=== PATIENT | male | born 1970 | race American Indian/Alaskan Native ===

== ENCOUNTER 2021-05-08 16:56 | Emergency (ER) | payer MEDICAID ==
[2021-05-08] MEDS ORDERED: GLUCAGON (HUMAN RECOMBINANT) 1 MG/ML INJ ONE (16:58)
[2021-05-08] MEDS ORDERED: SODIUM CHLORIDE 0.9% 1000 ML 1,000 ML IV ONE (17:20)
[2021-05-08] MEDS ORDERED: DEXTROSE 50% IN WATER (25GM) 50 ML SYRINGE IV ONE (17:20)
--- NOTE | 2021-05-08 17:26 | Emergency Department Report ---
ED Altered Mental Status HPI - General Chief Complaint: Hypoglycemia Stated Complaint: AMS PUI?: No Time Seen by Provider: 05/08/21 17:05 Source: EMS Mode of arrival: Stretcher Limitations: Altered Mental Status, Physical Limitation - History of Present Illness Initial Comments: Patient is a 50-year-old male who presents emergency room with EMS for hypoglycemia. EMS unable to obtain an IV access. EMS found the patient sugar to be 35. Patient is minimally responsive. Patient has a history of diabetes and bilateral lower extremity amputations. MD Complaint: altered mental status, decreased responsiveness -: Sudden Severity: severe Consistency of Symptoms: constant Context: other - Related Data Previous Rx's Medication Instructions Recorded Last Taken Type HumuLIN R 6 units SUB-Q AC #5 pen 05/01/20 Unknown Rx Levemir Flextouch 30 units SUB-Q DAILY #5 pen 05/01/20 Unknown Rx Tamsulosin [Flomax] 0.4 mg PO QDAY #30 capsule 05/01/20 Unknown Rx amLODIPine 5 mg PO QDAY 30 Days #30 tablet 05/01/20 Unknown Rx levoFLOXacin [Levaquin TAB] 750 mg PO Q24H #5 tablet 05/01/20 Unknown Rx Allergies Allergy/AdvReac Type Severity Reaction Status Date / Time No Known Allergies Allergy Verified 04/18/20 10:21 ED Review of Systems ROS: Stated complaint: AMS Other details as noted in HPI Comment: Unobtainable due to pts medical conditions ED Past Medical Hx - Past Medical History Previous Medical History?: Yes Hx Hypertension: Yes Hx Heart Attack/AMI: Yes Hx Congestive Heart Failure: Yes Hx Diabetes: Yes Hx Deep Vein Thrombosis: Yes Hx Pulmonary Embolism: Yes Additional medical history: gangrene - Surgical History Past Surgical History?: Yes Hx Open Heart Surgery: Yes Additional Surgical History: 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, left toe amputations - Family History Family history: no significant - Social History Smoking Status: Current Every Day Smoker Substance Use Type: None - Medications Home Medications: Home Medications Medication Instructions Recorded Confirmed Last Taken Type HumuLIN R 6 units SUB-Q AC #5 pen 05/01/20 Unknown Rx Levemir Flextouch 30 units SUB-Q DAILY #5 pen 05/01/20 Unknown Rx Tamsulosin [Flomax] 0.4 mg PO QDAY #30 capsule 05/01/20 Unknown Rx amLODIPine 5 mg PO QDAY 30 Days #30 tablet 05/01/20 Unknown Rx levoFLOXacin [Levaquin TAB] 750 mg PO Q24H #5 tablet 05/01/20 Unknown Rx ED Physical Exam - General Limitations: Altered Mental Status, Physical Limitation General appearance: in no apparent distress, obtunded - Head Head exam: Present: atraumatic, normocephalic - Eye Eye exam: Present: normal appearance, PERRL Pupils: Present: normal accommodation - ENT ENT exam: Present: mucous membranes dry - Neck Neck exam: Present: normal inspection - Respiratory Respiratory exam: Present: normal lung sounds bilaterally. Absent: respiratory distress, wheezes, rales - Cardiovascular Cardiovascular Exam: Present: regular rate, normal rhythm. Absent: systolic murmur, diastolic murmur, rubs, gallop - GI/Abdominal GI/Abdominal exam: Present: soft, normal bowel sounds - Rectal Rectal exam: Present: deferred - Extremities Exam Extremities exam: Present: normal inspection - Back Exam Back exam: Present: normal inspection - Neurological Exam Neurological exam: Present: altered - Skin Skin exam: Present: warm, dry, intact, normal color. Absent: rash - Assessment Assessment Interval: Baseline - Level of Consciousness 1a. Level of Consciousness: resp stimuli/obtunded - LOC Questions 1b. LOC Questions: answers 1 question correctly - LOC Command 1c. LOC Commands: performs tasks correctly - Best Gaze 2. Best Gaze: normal - Visual 3. Visual: no visual loss - Facial Palsy 4. Facial Palsy: normal symmetrical movement - Motor Arm 5a. Motor Arm Left: some gravity effort 5b. Motor Arm Right: some gravity effort - Motor Leg 6a. Motor Leg Left: some gravity effort 6b. Motor Leg Right: some gravity effort - Limb Ataxia 7. Limb Ataxia: amputation - Sensory 8. Sensory: normal - Best Language 9. Best Language: mute/global aphasia - Dysarthria 10. Dysarthria: mute/anarrthric - Extinction and Inattention 11. Extinction/Inattention: no abnormality - Scoring Total Score: 16 Stroke Severity: Moderate to Severe Stroke ED Course Vital Signs 05/08/21 05/08/21 17:33 20:01 Pulse Rate 104 H 118 H Respiratory 21 20 Rate Blood Pressure 177/114 Blood Pressure 142/89 [Left] O2 Sat by Pulse 89 97 Oximetry - Reevaluation(s) Reevaluation #1: Patient brought in by EMS without an IV. 2 IVs were placed. Personally placed a right EJ. See procedure note. Patient given IV glucose. Patient's current blood sugar is 129. Patient is answering yes/no questions. 05/08/21 17:24 Reevaluation #2: Patient alert oriented x3. Patient answering questions appropriately patient states that he took too much insulin and did not eat enough food for the amount of insulin he injects. Patient denies pain. Patient states he is just tired. Patient denies pain. Patient states she just feels tired. Patient denies chest pain or shortness of breath. Patient denies recent travel. Patient denies recent international travel. Patient denies exposure to the novel coronavirus. Patient denies sick contacts. Patient denies fever and chills. Patient denies cough. Patient denies diarrhea. Patient denies coming in contact with anybody with symptoms of the novel coronavirus. 05/08/21 18:18 Reevaluation #3: I discussed all results and clinical findings with patient. I discussed plan of care with patient. Patient agrees with plan of care. Patient is stable for discharge. Patient will be discharged home. Patient given discharge instructions. Patient voiced understanding of discharge instructions. 05/08/21 22:23 - EJ/Peripheral Line Neck RT Time Out Performed: Yes Indications: nurses unable to establis Skin Cleansed in Sterile Fashion: Yes Size: 20 Dressing Placed: Tegaderm, tape Patient Tolerated Procedure: well, no complications - Lab Data Result diagrams: 05/08/21 17:36 05/08/21 17:36 Lab Results 05/08/21 05/08/21 05/08/21 Range/Units 17:17 17:36 17:36 WBC 6.1 (4.5-11.0) K/mm3 RBC 4.96 (3.65-5.03) M/mm3 Hgb 14.5 (11.8-15.2) gm/dl Hct 45.0 (35.5-45.6) % MCV 91 (84-94) fl MCH 29 (28-32) pg MCHC 32 (32-34) % RDW 16.2 H (13.2-15.2) % Plt Count 303 (140-440) K/mm3 Lymph % (Auto) 13.9 (13.4-35.0) % Wallace % (Auto) 4.3 (0.0-7.3) % Eos % (Auto) 1.0 (0.0-4.3) % Baso % (Auto) 0.9 (0.0-1.8) % Lymph # (Auto) 0.8 L (1.2-5.4) K/mm3 Wallace # (Auto) 0.3 (0.0-0.8) K/mm3 Eos # (Auto) 0.1 (0.0-0.4) K/mm3 Baso # (Auto) 0.1 (0.0-0.1) K/mm3 Seg Neutrophils % 79.9 H (40.0-70.0) % Seg Neutrophils # 4.9 (1.8-7.7) K/mm3 Sodium (137-145) mmol/L Potassium (3.6-5.0) mmol/L Chloride (98-107) mmol/L Carbon Dioxide (22-30) mmol/L Anion Gap mmol/L BUN (9-20) mg/dL Creatinine (0.8-1.3) mg/dL Estimated GFR ml/min BUN/Creatinine Ratio % Glucose (75-100) mg/dL POC Glucose 129 H (70-105) mg/dL Lactic Acid 2.10 H* (0.7-2.0) mmol/L Calcium (8.4-10.2) mg/dL Total Bilirubin (0.1-1.2) mg/dL AST (5-40) units/L ALT (7-56) units/L Alkaline Phosphatase (35-129) units/L Ammonia (25-60) umol/L Total Creatine Kinase (55-170) units/L Troponin T (0.00-0.029) ng/mL Total Protein (6.3-8.2) g/dL Albumin (3.9-5) g/dL Albumin/Globulin Ratio % Urine Color (Yellow) Urine Turbidity (Clear) Urine pH (5.0-7.0) Ur Specific [place] (1.003-1.030) Urine Protein (Negative) mg/dL Urine Glucose (UA) (Negative) mg/dL Urine Ketones (Negative) mg/dL Urine Blood (Negative) Urine Nitrite (Negative) Urine Bilirubin (Negative) Urine Urobilinogen (<2.0) mg/dL Ur Leukocyte Esterase (Negative) Urine WBC (Auto) (0.0-6.0) /HPF Urine RBC (Auto) (0.0-6.0) /HPF U Epithel Cells (Auto) (0-13.0) /HPF Urine Opiates Screen Urine Methadone Screen Ur Barbiturates Screen Ur Phencyclidine Scrn Ur Amphetamines Screen U Benzodiazepines Scrn Urine Cocaine Screen U Marijuana (THC) Screen Drugs of Abuse Note Plasma/Serum Alcohol (0-0.07) % 05/08/21 05/08/21 05/08/21 Range/Units 17:36 17:36 17:36 WBC (4.5-11.0) K/mm3 RBC (3.65-5.03) M/mm3 Hgb (11.8-15.2) gm/dl Hct (35.5-45.6) % MCV (84-94) fl MCH (28-32) pg MCHC (32-34) % RDW (13.2-15.2) % Plt Count (140-440) K/mm3 Lymph % (Auto) (13.4-35.0) % Wallace % (Auto) (0.0-7.3) % Eos % (Auto) (0.0-4.3) % Baso % (Auto) (0.0-1.8) % Lymph # (Auto) (1.2-5.4) K/mm3 Wallace # (Auto) (0.0-0.8) K/mm3 Eos # (Auto) (0.0-0.4) K/mm3 Baso # (Auto) (0.0-0.1) K/mm3 Seg Neutrophils % (40.0-70.0) % Seg Neutrophils # (1.8-7.7) K/mm3 Sodium 141 (137-145) mmol/L Potassium 4.0 (3.6-5.0) mmol/L Chloride 103.0 (98-107) mmol/L Carbon Dioxide 27 (22-30) mmol/L Anion Gap 15 mmol/L BUN 19 (9-20) mg/dL Creatinine 1.1 (0.8-1.3) mg/dL Estimated GFR > 60 ml/min BUN/Creatinine Ratio 17 % Glucose 225 H (75-100) mg/dL POC Glucose (70-105) mg/dL Lactic Acid (0.7-2.0) mmol/L Calcium 9.2 (8.4-10.2) mg/dL Total Bilirubin 0.20 (0.1-1.2) mg/dL AST 36 (5-40) units/L ALT 38 (7-56) units/L Alkaline Phosphatase 172 H (35-129) units/L Ammonia 37.0 (25-60) umol/L Total Creatine Kinase 320 H (55-170) units/L Troponin T < 0.010 (0.00-0.029) ng/mL Total Protein 7.9 (6.3-8.2) g/dL Albumin 3.6 L (3.9-5) g/dL Albumin/Globulin Ratio 0.8 % Urine Color (Yellow) Urine Turbidity (Clear) Urine pH (5.0-7.0) Ur Specific [place] (1.003-1.030) Urine Protein (Negative) mg/dL Urine Glucose (UA) (Negative) mg/dL Urine Ketones (Negative) mg/dL Urine Blood (Negative) Urine Nitrite (Negative) Urine Bilirubin (Negative) Urine Urobilinogen (<2.0) mg/dL Ur Leukocyte Esterase (Negative) Urine WBC (Auto) (0.0-6.0) /HPF Urine RBC (Auto) (0.0-6.0) /HPF U Epithel Cells (Auto) (0-13.0) /HPF Urine Opiates Screen Urine Methadone Screen Ur Barbiturates Screen Ur Phencyclidine Scrn Ur Amphetamines Screen U Benzodiazepines Scrn Urine Cocaine Screen U Marijuana (THC) Screen Drugs of Abuse Note Plasma/Serum Alcohol < 0.01 (0-0.07) % 05/08/21 05/08/21 05/08/21 Range/Units 18:25 18:47 21:01 WBC (4.5-11.0) K/mm3 RBC (3.65-5.03) M/mm3 Hgb (11.8-15.2) gm/dl Hct (35.5-45.6) % MCV (84-94) fl MCH (28-32) pg MCHC (32-34) % RDW (13.2-15.2) % Plt Count (140-440) K/mm3 Lymph % (Auto) (13.4-35.0) % Wallace % (Auto) (0.0-7.3) % Eos % (Auto) (0.0-4.3) % Baso % (Auto) (0.0-1.8) % Lymph # (Auto) (1.2-5.4) K/mm3 Wallace # (Auto) (0.0-0.8) K/mm3 Eos # (Auto) (0.0-0.4) K/mm3 Baso # (Auto) (0.0-0.1) K/mm3 Seg Neutrophils % (40.0-70.0) % Seg Neutrophils # (1.8-7.7) K/mm3 Sodium (137-145) mmol/L Potassium (3.6-5.0) mmol/L Chloride (98-107) mmol/L Carbon Dioxide (22-30) mmol/L Anion Gap mmol/L BUN (9-20) mg/dL Creatinine (0.8-1.3) mg/dL Estimated GFR ml/min BUN/Creatinine Ratio % Glucose (75-100) mg/dL POC Glucose 212 H (70-105) mg/dL Lactic Acid 2.50 H* 2.30 H* (0.7-2.0) mmol/L Calcium (8.4-10.2) mg/dL Total Bilirubin (0.1-1.2) mg/dL AST (5-40) units/L ALT (7-56) units/L Alkaline Phosphatase (35-129) units/L Ammonia (25-60) umol/L Total Creatine Kinase (55-170) units/L Troponin T (0.00-0.029) ng/mL Total Protein (6.3-8.2) g/dL Albumin (3.9-5) g/dL Albumin/Globulin Ratio % Urine Color (Yellow) Urine Turbidity (Clear) Urine pH (5.0-7.0) Ur Specific [place] (1.003-1.030) Urine Protein (Negative) mg/dL Urine Glucose (UA) (Negative) mg/dL Urine Ketones (Negative) mg/dL Urine Blood (Negative) Urine Nitrite (Negative) Urine Bilirubin (Negative) Urine Urobilinogen (<2.0) mg/dL Ur Leukocyte Esterase (Negative) Urine WBC (Auto) (0.0-6.0) /HPF Urine RBC (Auto) (0.0-6.0) /HPF U Epithel Cells (Auto) (0-13.0) /HPF Urine Opiates Screen Urine Methadone Screen Ur Barbiturates Screen Ur Phencyclidine Scrn Ur Amphetamines Screen U Benzodiazepines Scrn Urine Cocaine Screen U Marijuana (THC) Screen Drugs of Abuse Note Plasma/Serum Alcohol (0-0.07) % 05/08/21 05/08/21 Range/Units 21:22 21:22 WBC (4.5-11.0) K/mm3 RBC (3.65-5.03) M/mm3 Hgb (11.8-15.2) gm/dl Hct (35.5-45.6) % MCV (84-94) fl MCH (28-32) pg MCHC (32-34) % RDW (13.2-15.2) % Plt Count (140-440) K/mm3 Lymph % (Auto) (13.4-35.0) % Wallace % (Auto) (0.0-7.3) % Eos % (Auto) (0.0-4.3) % Baso % (Auto) (0.0-1.8) % Lymph # (Auto) (1.2-5.4) K/mm3 Wallace # (Auto) (0.0-0.8) K/mm3 Eos # (Auto) (0.0-0.4) K/mm3 Baso # (Auto) (0.0-0.1) K/mm3 Seg Neutrophils % (40.0-70.0) % Seg Neutrophils # (1.8-7.7) K/mm3 Sodium (137-145) mmol/L Potassium (3.6-5.0) mmol/L Chloride (98-107) mmol/L Carbon Dioxide (22-30) mmol/L Anion Gap mmol/L BUN (9-20) mg/dL Creatinine (0.8-1.3) mg/dL Estimated GFR ml/min BUN/Creatinine Ratio % Glucose (75-100) mg/dL POC Glucose (70-105) mg/dL Lactic Acid (0.7-2.0) mmol/L Calcium (8.4-10.2) mg/dL Total Bilirubin (0.1-1.2) mg/dL AST (5-40) units/L ALT (7-56) units/L Alkaline Phosphatase (35-129) units/L Ammonia (25-60) umol/L Total Creatine Kinase (55-170) units/L Troponin T (0.00-0.029) ng/mL Total Protein (6.3-8.2) g/dL Albumin (3.9-5) g/dL Albumin/Globulin Ratio % Urine Color Straw (Yellow) Urine Turbidity Clear (Clear) Urine pH 6.0 (5.0-7.0) Ur Specific [place] 1.011 (1.003-1.030) Urine Protein 100 mg/dl (Negative) mg/dL Urine Glucose (UA) 150 (Negative) mg/dL Urine Ketones Neg (Negative) mg/dL Urine Blood Sm (Negative) Urine Nitrite Neg (Negative) Urine Bilirubin Neg (Negative) Urine Urobilinogen < 2.0 (<2.0) mg/dL Ur Leukocyte Esterase Neg (Negative) Urine WBC (Auto) < 1.0 (0.0-6.0) /HPF Urine RBC (Auto) 6.0 (0.0-6.0) /HPF U Epithel Cells (Auto) < 1.0 (0-13.0) /HPF Urine Opiates Screen Negative Urine Methadone Screen Negative Ur Barbiturates Screen Negative Ur Phencyclidine Scrn Negative Ur Amphetamines Screen Negative U Benzodiazepines Scrn Negative Urine Cocaine Screen Negative U Marijuana (THC) Screen Positive Drugs of Abuse Note Disclamer Plasma/Serum Alcohol (0-0.07) % - EKG Data -: EKG Interpreted by Me EKG shows normal: sinus rhythm, axis, intervals, QRS complexes, ST-T waves Rate: normal - Radiology Data Radiology results: report reviewed, image reviewed interpreted by me: Chest x-ray: No pneumonia, no pneumothorax, no foreign body, no osseous findings, no acute findings CHEST 1 VIEW INDICATION / CLINICAL INFORMATION: Altered Mental Status. FINDINGS: SUPPORT DEVICES: None. HEART / MEDIASTINUM: No significant abnormality. LUNGS / PLEURA: No significant pulmonary or pleural abnormality. No pneumothorax. ADDITIONAL FINDINGS: No significant additional findings. IMPRESSION: 1. No acute findings. NONENHANCED CT SCAN OF THE HEAD: INDICATION / CLINICAL INFORMATION: 50 years Male; Altered Mental Status. TECHNIQUE: Routine CT head without contrast. All CT scans at this location are performed using CT dose reduction for ALARA by means of automated exposure control. COMPARISON: CT scan from 04/19/2020 FINDINGS: BRAIN / INTRACRANIAL CONTENTS: No acute hemorrhage, mass effect, midline shift, hydrocephalus, or acute, large territorial infarct. No chronic infarct or focal atrophy. Normal brain volume and ventricular/sulcal size for age. Subtle low-attenuation white matter lesions probably due to chronic small vessel disease CRANIOCERVICAL JUNCTION: No significant abnormality. ORBITS: No significant abnormality of visualized orbits. SINUSES / MASTOIDS: No significant abnormality of the visualized paranasal sinuses or mastoid air cells. ADDITIONAL FINDINGS: None. IMPRESSION: No focal mass, hemorrhage, hydrocephalus, or acute, large territorial infarct. CT remains unchanged since 04/19/2020 - Medical Decision Making Patient is a 50-year-old male who presents emergency room for hypoglycemia. Patient brought in by EMS. EMS initially unable to obtain IV access. Patient was given IM glucagon and IV access was obtained upon arrival. I personally placed a right EJ for IV access. Patient's blood sugar improved. Patient's mentation improved almost immediately after blood sugar was recovered. Patient answered all questions appropriate. Patient initially minimally responsive and altered. Patient had altered mental status work-up. Patient had a head CT for his mentation and it was negative for acute finding. Patient had a chest x-ray and it was negative for acute findings. I personally reviewed the chest x-ray. Patient had labs done which were essentially unremarkable except for lactic acidosis. Patient likely acidosis secondary to the long standing hypoglycemia. Patient given fluids while in ER. Patient returned to baseline mentation. Patient's blood sugars was monitored throughout the stay in the ER. Patient does not require any further emergency medical services or inpatient services. Patient is stable for discharge. Patient discharged home. Critical care time documented due to the multiple reassessments, prolonged time at the bedside, interpretation of diagnostics and labs. - Differential Diagnosis Hypoglycemia, unresponsive, altered mental status, dehydration, Critical Care Time: Yes Critical care time in (mins) excluding proc time.: 35 Critical care attestation.: If time is entered above; I have spent that time in minutes in the direct care of this critically ill patient, excluding procedure time. Critical Care Time: 35 minutes ED Disposition Clinical Impression: Hyperglycemia, Lactic acidosis, Dehydration, Hypoglycemia Disposition: DC-01 TO HOME OR SELFCARE Is pt being admited?: No Does the pt Need Aspirin: No Condition: Stable Instructions: Preventing Type 2 Diabetes Mellitus, Rehydration, Adult, Hypoglycemia, [id number] Additional Instructions: Patient to follow-up with primary care in 2 to 3 days. Patient to follow-up with sand tester in 2 to 3 days. Patient to rest. Patient to increase water. Patient to eat regularly. Patient to monitor blood sugar at home. Patient to keep a blood sugar log.. Patient to continue all medications. Patient to return to the ER if condition worsens, changes or new symptoms arise. Referrals: PRIMARY CARE, [Primary Care Provider] - 2-3 Days Time of Disposition: 22:26
--- NOTE | 2021-05-08 17:46 | XRay Report ---
CHEST 1 VIEW INDICATION / CLINICAL INFORMATION: Altered Mental Status. FINDINGS: SUPPORT DEVICES: None. HEART / MEDIASTINUM: No significant abnormality. LUNGS / PLEURA: No significant pulmonary or pleural abnormality. No pneumothorax. ADDITIONAL FINDINGS: No significant additional findings. IMPRESSION: 1. No acute findings. Signer Name: Ron Giordano MD Signed: 05/08/2021 5:42 PM Workstation Name: [id number]
[2021-05-08 18:05] LABS: Basophils # (Auto) 0.1 K/mm3 (0.0-0.1); Basophils % (Auto) 0.9 % (0.0-1.8); Eosinophils # (Auto) 0.1 K/mm3 (0.0-0.4); Hemoglobin 14.5 gm/dl (11.8-15.2); Lymphocytes # (Auto) 0.8 K/mm3 (1.2-5.4); Lymphocytes % (Auto) 13.9 % (13.4-35.0); Mean Corpuscular HGB Conc 32 % (32-34); Mean Corpuscular Volume 91 fl (84-94); Monocytes # (Auto) 0.3 K/mm3 (0.0-0.8); Monocytes % (Auto) 4.3 % (0.0-7.3); Platelet Count 303 K/mm3 (140-440); Red Blood Count 4.96 M/mm3 (3.65-5.03); Red Cell Distribution Width 16.2 % (13.2-15.2)
[2021-05-08 18:30] LABS: Alanine Aminotransferase 38 units/L (7-56); Albumin 3.6 g/dL (3.9-5); BUN/Creatinine Ratio 17; Blood Urea Nitrogen 19 mg/dL (9-20); Calcium 9.2 mg/dL (8.4-10.2); Hemolysis Index 5
--- NOTE | 2021-05-08 18:38 | Cat Scan Report ---
NONENHANCED CT SCAN OF THE HEAD: INDICATION / CLINICAL INFORMATION: 50 years Male; Altered Mental Status. TECHNIQUE: Routine CT head without contrast. All CT scans at this location are performed using CT dos e reduction for ALARA by means of automated exposure control. COMPARISON: CT scan from 04/19/2020 FINDINGS: BRAIN / INTRACRANIAL CONTENTS: No acute hemorrhage, mass effect, midline shift, hydrocephalus, or acu te, large territorial infarct. No chronic infarct or focal atrophy. Normal brain volume and ventricul ar/sulcal size for age. Subtle low-attenuation white matter lesions probably due to chronic small ves kirti disease CRANIOCERVICAL JUNCTION: No significant abnormality. ORBITS: No significant abnormality of visualized orbits. SINUSES / MASTOIDS: No significant abnormality of the visualized paranasal sinuses or mastoid air ebony ls. ADDITIONAL FINDINGS: None. IMPRESSION: No focal mass, hemorrhage, hydrocephalus, or acute, large territorial infarct. CT remains unchanged since 04/19/2020 Signer Name: Troy Hung MD Signed: 05/08/2021 6:34 PM Workstation Name: [id number]
[2021-05-08 20:02] VITALS: BP 142/89
[2021-05-08] MEDS ORDERED: ACETAMINOPHEN 325 MG TAB PO ONE (20:46)
[2021-05-08 21:46] LABS: Bilirubin,Urine NEG (Negative); Blood,Urine SM (Negative); Color,Urine Straw (Yellow); Urobilinogen,Urine < 2.0 mg/dL (<2.0); WBC,Urine < 1.0 /HPF (0.0-6.0)
[2021-05-08 21:47] LABS: Amphetamine Screen,Urine Negative; Benzodiazepines Screen,Urine Negative; Cocaine Screen,Urine Negative; Methadone Screen,Urine Negative; Opiate Screen,Urine Negative
[2021-05-08 22:06] LABS: Cannabinoid Screen,Urine Positive
== END 2021-05-08 23:14 | disposition home or self-care (01) ==
LOC: ED 16:56
DX: E11.65 Type 2 diabetes mellitus with hyperglycemia (principal); E86.0 Dehydration; E87.2 Acidosis; I11.0 Hypertensive heart disease with heart failure; I50.9 Heart failure, unspecified; I25.2 Old myocardial infarction; Z98.890 Other specified postprocedural states; F17.200 Nicotine dependence, unspecified, uncomplicated; Z79.899 Other long term (current) drug therapy
CPT/HCPCS: 36415; 36556; 70450; 71045; 80053; 80307; 81001; 82140; 82550; 82962; 84484; 85025; 96361; 96374; 99285; J1610; J7030; 80320; G0480

== ENCOUNTER 2021-07-24 02:10 | Inpatient (IN) | payer MEDICAID ==
[~2021-07-24 02:10] MED LIST: levoFLOXacin 750 MG TAB PO SCH
--- NOTE | 2021-07-24 02:33 | Emergency Department Report ---
ED N/V/D HPI - General Chief complaint: Nausea/Vomiting/Diarrhea Stated complaint: HYPOTENSION/HYPERGLYCEMIA Time Seen by Provider: 07/24/21 02:23 Source: EMS Mode of arrival: Stretcher Limitations: Physical Limitation - History of Present Illness Initial comments: 50-year-old male, history of diabetes, hypertension, CAD with CABG, presents to ED with nausea and vomiting x3 days. Patient reports associated diffuse abdominal pain. He denies any diarrhea. He denies any fever or chills. Patient reports some mild coughing. Denies any loss of smell or taste. Patient reports he is unvaccinated against COVID-19. EMS was called for transport to the ED. EMS reports Accu-Chek reads HIGH, patient also hypotensive in the field, systolic BP in the 90s. Patient is noncompliant with his insulin. Patient currently on Eliquis. Patient states he does not know why he takes Eliquis. MD complaint: nausea, vomiting -: days(s) (3) Description of Vomiting: food contents, watery Associated Abdominal Pain: Yes Location: diffuse Radiation: none Severity: moderate Quality: cramping Consistency: constant Improves with: none Worsens with: none Associated Symptoms: cough, nausea/vomiting. denies: fever/chills, shortness of breath - Related Data Previous Rx's Medication Instructions Recorded Last Taken Type HumuLIN R 6 units SUB-Q AC #5 pen 05/01/20 Unknown Rx Levemir Flextouch 30 units SUB-Q DAILY #5 pen 05/01/20 Unknown Rx Tamsulosin [Flomax] 0.4 mg PO QDAY #30 capsule 05/01/20 Unknown Rx amLODIPine 5 mg PO QDAY 30 Days #30 tablet 05/01/20 Unknown Rx levoFLOXacin [Levaquin TAB] 750 mg PO Q24H #5 tablet 05/01/20 Unknown Rx Allergies Allergy/AdvReac Type Severity Reaction Status Date / Time No Known Allergies Allergy Verified 04/18/20 10:21 ED Review of Systems ROS: Stated complaint: HYPOTENSION/HYPERGLYCEMIA Other details as noted in HPI Comment: All other systems reviewed and negative Constitutional: denies: chills, fever Respiratory: cough Gastrointestinal: abdominal pain, nausea, vomiting. 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, left toe amputations - Social History Smoking Status: Current Every Day Smoker Substance Use Type: None - Medications Home Medications: Home Medications Medication Instructions Recorded Confirmed Last Taken Type HumuLIN R 6 units SUB-Q AC #5 pen 05/01/20 Unknown Rx Levemir Flextouch 30 units SUB-Q DAILY #5 pen 05/01/20 Unknown Rx Tamsulosin [Flomax] 0.4 mg PO QDAY #30 capsule 05/01/20 Unknown Rx amLODIPine 5 mg PO QDAY 30 Days #30 tablet 05/01/20 Unknown Rx levoFLOXacin [Levaquin TAB] 750 mg PO Q24H #5 tablet 05/01/20 Unknown Rx ED Physical Exam - General Limitations: Physical Limitation General appearance: alert, in no apparent distress - Head Head exam: Present: atraumatic, normocephalic - Eye Eye exam: Present: normal appearance, EOMI - ENT ENT exam: Present: mucous membranes dry - Neck Neck exam: Present: normal inspection - Respiratory Respiratory exam: Present: normal lung sounds bilaterally. Absent: respiratory distress - Cardiovascular Cardiovascular Exam: Present: regular rate, normal rhythm - GI/Abdominal GI/Abdominal exam: Present: soft, tenderness (Epigastric tenderness present). Absent: distended - Extremities Exam Extremities exam: Present: other (Bilateral BKA's present) - Neurological Exam Neurological exam: Present: alert, oriented X3 - Psychiatric Psychiatric exam: Present: normal affect, normal mood - Skin Skin exam: Present: warm, dry, intact, normal color ED Course Vital Signs 07/24/21 07/24/21 07/24/21 02:25 03:31 03:53 Temperature 96.5 F L Pulse Rate 101 H 105 H Respiratory 16 21 Rate Blood Pressure 144/124 108/60 O2 Sat by Pulse 100 Oximetry 07/24/21 07/24/21 04:45 05:15 Temperature Pulse Rate 97 H 106 H Respiratory 21 15 Rate Blood Pressure 108/60 118/78 O2 Sat by Pulse 94 Oximetry ED Medical Decision Making - Lab Data Result diagrams: 07/24/21 02:43 07/24/21 04:01 - EKG Data -: EKG Interpreted by Me EKG shows normal: sinus rhythm, axis, intervals, QRS complexes, ST-T waves Rate: tachycardia (rate 102) - EKG Data Interpretation: LVH - Radiology Data Radiology results: image reviewed - Medical Decision Making 50-year-old male presents to ED in DKA. Glucose is 906 with bicarb of 15 and anion gap of 33. Small serum ketones present. Patient also appears to have some acute renal failure with elevation in BUN and creatinine of 78 and 3.5. Potassium is 7.7. EKG shows no changes related to hyperkalemia. 2 L bolus of IV fluids administered. Repeat BMP shows improvement of potassium to 5.4, and bicarb to 20 prior to initiation of insulin drip. Insulin drip ordered and initiated initiated. Patient has WBC count of 23.3. This is likely secondary to symptoms DKA, dehydration, nausea and vomiting. Patient is afebrile. I have spoken with Dr. Amato, hospitalist for admission. He has ordered Levaquin for the patient. Patient will be admitted for further management. - Differential Diagnosis DKA Critical Care Time: Yes Critical care time in (mins) excluding proc time.: 35 Critical care attestation.: If time is entered above; I have spent that time in minutes in the direct care o f this critically ill patient, excluding procedure time. Critical Care Time: 35 min ED Disposition Clinical Impression: Diabetic ketoacidosis, Acute renal failure Disposition: ADMITTED INPATIENT Is pt being admited?: Yes Condition: Stable Time of Disposition: 03:52
[2021-07-24] MEDS ORDERED: SODIUM CHLORIDE 0.9% 1000 ML IV SOLN IV ONE (02:39)
[2021-07-24] MEDS ORDERED: ONDANSETRON 4 MG/2 ML INJ ONE (03:08)
[2021-07-24 03:09] LABS: Mean Corpuscular HGB Conc 31 % (32-34); Mean Corpuscular Volume 91 fl (84-94); Platelet Count 239 K/mm3 (140-440); Red Blood Count 5.54 M/mm3 (3.65-5.03); Red Cell Distribution Width 15.5 % (13.2-15.2)
[2021-07-24 03:11] LABS: Hematocrit 50.6 % (35.5-45.6); Hemoglobin 15.8 gm/dl (11.8-15.2)
[2021-07-24] MEDS ORDERED: ONDANSETRON 4 MG/2 ML INJ IV ONE (03:23)
[2021-07-24 03:35] LABS: Alanine Aminotransferase 15 units/L (7-56); Albumin 3.2 g/dL (3.9-5); BUN/Creatinine Ratio 22; Blood Urea Nitrogen 78 mg/dL (9-20); Hemolysis Index 307
[2021-07-24 03:38] LABS: Bilirubin,Direct < 0.2 mg/dL (0-0.2)
[2021-07-24] MEDS ORDERED: SODIUM CHLORIDE 0.9% 1000 ML 1,000 ML IV ONE (03:49)
[2021-07-24] MEDS ORDERED: ACETAMINOPHEN 325 MG TAB PO PRN (04:06)
[2021-07-24] MEDS ORDERED: oxyCODONE /ACETAMINOPHEN 5-325MG TAB PO PRN (04:06)
[2021-07-24] MEDS ORDERED: ALBUTEROL 2.5 MG/3 ML NEBU IH PRN (04:06)
[2021-07-24] MEDS ORDERED: ONDANSETRON 4 MG/2 ML INJ IV PRN (04:06)
[2021-07-24] MEDS ORDERED: HYDROmorphone 1 MG/1 ML INJ IV PRN (04:06)
[2021-07-24] MEDS ORDERED: SODIUM CHLORIDE 0.9% 1000 ML 1,000 ML IV SCH (04:15)
--- NOTE | 2021-07-24 04:19 | History and Physical Report ---
History of Present Illness Date of examination: 07/24/21 Date of admission: 07/24/21 Chief complaint: Nausea vomiting diarrhea History of present illness: 50-year-old male with past medical history of diabetes, hypertension, CAD and CABG was brought to the emergency room because of nausea vomiting for the last 3 days. Patient reports associated diffuse abdominal pain. He denies any diarrhea. He denies any fever or chills. Patient reports some mild coughing. Denies any loss of smell or taste. Patient reports he is unvaccinated against COVID-19. EMS was called for transport to the ED. EMS reports Accu-Chek reads HIGH, patient also hypotensive in the field, systolic BP in the 90s. Patient is noncompliant with his insulin. Patient currently on Eliquis. Patient states he does not know why he takes Eliquis. In the emergency room patient is found to have blood glucose of 906, potassium of 7.7 BUN of 78 and creatinine 3.5, sodium 126, anion gap 33. We will going to admit the patient to the ICU we will put the patient on insulin drip. Will consult critical care and nephrology Med rec is done. Advance discharge planning is initiated Past History Past Medical History: CAD, diabetes, hypertension Past Surgical History: CABG Medications and Allergies Allergies Allergy/AdvReac Type Severity Reaction Status Date / Time No Known Allergies Allergy Verified 04/18/20 10:21 Home Medications Medication Instructions Recorded Confirmed Last Taken Type HumuLIN R 6 units SUB-Q AC #5 pen 05/01/20 Unknown Rx Levemir Flextouch 30 units SUB-Q DAILY #5 pen 05/01/20 Unknown Rx Tamsulosin [Flomax] 0.4 mg PO QDAY #30 capsule 05/01/20 Unknown Rx amLODIPine 5 mg PO QDAY 30 Days #30 tablet 05/01/20 Unknown Rx levoFLOXacin [Levaquin TAB] 750 mg PO Q24H #5 tablet 05/01/20 Unknown Rx Active Meds: Active Medications Acetaminophen (Acetaminophen 325 Mg Tab) 650 mg PO Q4H PRN PRN Reason: Pain MILD(1-3)/Fever >100.5/CUELLO Albuterol (Albuterol 2.5 Mg/3 Ml Nebu) 2.5 mg IH Q4HRT PRN PRN Reason: Shortness Of Breath Albuterol/Ipratropium (Ipratropium/Albuterol Sulfate 3 Ml Ampul.Neb) 1 ampul IH Q6HRT [facility] Amlodipine Besylate (Amlodipine 5 Mg Tab) 5 mg PO QDAY [facility] Famotidine (Famotidine 20 Mg/2 Ml Inj) 20 mg IV BID [facility] Heparin Sodium (Porcine) (Heparin 5,000 Unit/1 Ml Vial) 5,000 unit SUB-Q Q12HR [facility] Hydromorphone HCl (Hydromorphone 1 Mg/1 Ml Inj) 0.5 mg IV Q3H PRN PRN Reason: Pain , Severe (7-10) Insulin Human Regular 100 (units/ Sodium Chloride) 100 mls @ 1 mls/hr IV TITR JULIO C; Protocol Sodium Chloride (Nacl 0.9% 1000 Ml) 1,000 mls @ 999 mls/hr IV BOLUS ONE Stop: 07/24/21 04:49 Sodium Chloride (Nacl 0.9% 1000 Ml) 1,000 mls @ 150 mls/hr IV DIRECT JULIO C Levofloxacin (Levofloxacin 750 Mg Tab) 750 mg PO Q24H JULIO C; Protocol Ondansetron HCl (Ondansetron 4 Mg/2 Ml Inj) 4 mg IV Q8H PRN PRN Reason: Nausea And Vomiting Oxycodone/Acetaminophen (Oxycodone /Acetaminophen 5-325mg Tab) 1 tab PO Q6H PRN PRN Reason: Pain, Moderate (4-6) Sodium Chloride (Sodium Chloride 0.9% 10 Ml Flush Syringe) 10 ml IV BID JULIO C Sodium Chloride (Sodium Chloride 0.9% 10 Ml Flush Syringe) 10 ml IV PRN PRN PRN Reason: LINE FLUSH Tamsulosin HCl (Tamsulosin 0.4 Mg Cap) 0.4 mg PO QDAY [facility] Review of Systems All systems: negative Gastrointestinal: nausea, vomiting Exam - Constitutional Vitals: Temp Pulse Resp BP Pulse Ox 96.5 F L 101 H 16 144/124 07/24/21 03:53 07/24/21 02:25 07/24/21 02:25 07/24/21 02:25 General appearance: Present: no acute distress, well-nourished - EENT Eyes: Present: PERRL ENT: hearing intact, clear oral mucosa - Neck Neck: Present: supple, normal ROM - Respiratory Respiratory effort: normal Respiratory: bilateral: CTA - Cardiovascular Heart Sounds: Present: S1 & S2. Absent: rub, click - Extremities Extremities: pulses symmetrical, No edema Peripheral Pulses: within normal limits - Abdominal General gastrointestinal: Present: soft, non-tender, non-distended, normal bowel sounds Male genitourinary: Present: normal - Integumentary Integumentary: Present: clear, warm, dry - Musculoskeletal Musculoskeletal: gait normal, strength equal bilaterally - Psychiatric Psychiatric: appropriate mood/affect, intact judgment & insight - Neurologic Neurologic: CNII-XII intact, moves all extremities Results - Labs CBC & Chem 7: 07/24/21 02:43 07/24/21 04:01 Labs: Laboratory Last Values WBC 23.3 K/mm3 (4.5-11.0) H 07/24/21 02:43 RBC 5.54 M/mm3 (3.65-5.03) H 07/24/21 02:43 Hgb 15.8 gm/dl (11.8-15.2) H 07/24/21 02:43 Hct 50.6 % (35.5-45.6) H 07/24/21 02:43 MCV 91 fl (84-94) 07/24/21 02:43 MCH 29 pg (28-32) 07/24/21 02:43 MCHC 31 % (32-34) L 07/24/21 02:43 RDW 15.5 % (13.2-15.2) H 07/24/21 02:43 Plt Count 239 K/mm3 (140-440) 07/24/21 02:43 Seg Neutrophils % [employer] Mess Attendant 07/24/21 02:43 VBG pH 7.206 (7.320-7.420) L 07/24/21 03:40 Sodium 126 mmol/L (137-145) L 07/24/21 02:43 Potassium 7.7 mmol/L (3.6-5.0) H* 07/24/21 02:43 Chloride 85.5 mmol/L (98-107) L 07/24/21 02:43 Carbon Dioxide 15 mmol/L (22-30) L 07/24/21 02:43 Anion Gap 33 mmol/L 07/24/21 02:43 BUN 78 mg/dL (9-20) H 07/24/21 02:43 Creatinine 3.5 mg/dL (0.8-1.3) H 07/24/21 02:43 Estimated GFR 23 ml/min 07/24/21 02:43 BUN/Creatinine Ratio 22 % 07/24/21 02:43 Glucose 906 mg/dL (75-100) H* 07/24/21 02:43 Ketones Quantitative Small (Negative) 07/24/21 02:43 Calcium 9.0 mg/dL (8.4-10.2) 07/24/21 02:43 Total Bilirubin 0.20 mg/dL (0.1-1.2) 07/24/21 02:43 Direct Bilirubin < 0.2 mg/dL (0-0.2) 07/24/21 02:43 Indirect Bilirubin 0.0 mg/dL 07/24/21 02:43 AST 47 units/L (5-40) H 07/24/21 02:43 ALT 15 units/L (7-56) 07/24/21 02:43 Alkaline Phosphatase 199 units/L (35-129) H 07/24/21 02:43 Total Protein 8.1 g/dL (6.3-8.2) 07/24/21 02:43 Albumin 3.2 g/dL (3.9-5) L 07/24/21 02:43 Albumin/Globulin Ratio 0.7 % 07/24/21 02:43 Lipase 11 units/L (13-60) L 07/24/21 02:43 - Imaging and Cardiology Chest x-ray: report reviewed Assessment and Plan VTE prophylaxis?: Chemical Plan of care discussed with patient/family: Yes - Patient Problems (1) Diabetic ketoacidosis Current Visit: Yes Status: Acute Plan to address problem: Admit the patient to the ICU. Put the patient on DKA pathway. Insulin drip as per protocol. We do the serial BMP. IV fluid normal saline at the rate of 150 cc/h. Will consult critical care evaluation. Recheck CBC BMP in the morning (2) Hyperkalemia Current Visit: Yes Status: Acute Plan to address problem: Avoid nephrotoxic drug. Insulin drip as per protocol. Calcium gluconate 1 g IV x1 dose. Sodium bicarb 50 mEq IV x1 dose. We consulted nephrology for further evaluation and treatment. Case discussed with nephrology. Recheck BMP in the morning (3) Acute renal failure Current Visit: Yes Status: Acute Plan to address problem: Avoid nephrotoxic drug. Normal saline at the rate of 150 cc/h. Renally dose medication. Serial BMP. Consult nephrology for further evaluation and treatment (4) Hypertension Current Visit: Yes Status: Acute Plan to address problem: Amlodipine 5 mg p.o. daily. We continue the home medication. We will monitor the patient closely (5) CAD (coronary artery disease) Current Visit: Yes Status: Acute Plan to address problem: Stable. We will continue the home medication (6) Hyperglycemia Current Visit: No Status: Acute Plan to address problem: Insulin drip as per protocol. We do the serial BMP. IV fluid normal saline at the rate of 150 cc/h. Will consult critical care evaluation. Recheck CBC BMP in the morning (7) DVT prophylaxis Current Visit: Yes Status: Acute Plan to address problem: Heparin 5000 units subcu every 12 hours for DVT prophylaxis. Pepcid 20 mg IV every 12 hours for GI prophylaxis. Patient is a full code
[2021-07-24] MEDS ORDERED: SODIUM BICARB 8.4% 50 MEQ/50 ML SYRINGE IV ONE (04:44)
[2021-07-24] MEDS ORDERED: SODIUM POLYSTYRENE 15 GM/60 ML ORAL LIQD PO ONE (04:44)
[2021-07-24] MEDS: INSULIN REGULAR, HUMAN 100 UNITS in SODIUM CHLORIDE 0.9% 99 ML IV SCH ×2 (04:45→17:05)
[2021-07-24] MEDS ORDERED: INSULIN REGULAR, HUMAN 100 UNITS in SODIUM CHLORIDE 0.9% 99 ML IV SCH (05:00)
[2021-07-24 05:06] LABS: Total Cells Counted 100
[2021-07-24 05:08] LABS: Platelet Estimate Consistent w Auto; RBC Morphology Normal
[2021-07-24] MEDS ORDERED: CALCIUM GLUCONATE 1,000 MG in SODIUM CHLORIDE 0.9% 100 ML IV ONE (05:13)
[2021-07-24] MEDS ORDERED: levoFLOXacin 750 MG TAB PO SCH (05:15)
[2021-07-24 05:19] LABS: Bilirubin,Urine NEG (Negative); Blood,Urine LG (Negative); Color,Urine Yellow (Yellow); Mucus,Urine FEW /HPF; Urobilinogen,Urine < 2.0 mg/dL (<2.0)
--- NOTE | 2021-07-24 05:40 | XRay Report ---
ABDOMEN 3 VIEW(S) INDICATION / CLINICAL INFORMATION: abd pain, vomiting, cough. COMPARISON: None available. FINDINGS: TUBES / LINES: None. BOWEL GAS PATTERN: No significant abnormality. FREE AIR / EXTRALUMINAL GAS: None seen. ADDITIONAL FINDINGS: No acute findings on the included chest radiograph. IMPRESSION: 1. No significant abnormality. Signer Name: Kevin Parsons MD Signed: 07/24/2021 5:36 AM Workstation Name: [id number]
[2021-07-24 06:32] LABS: Calcium 8.8 mg/dL (8.4-10.2)
[2021-07-24] MEDS ORDERED: DEXTROSE 50% IN WATER (25GM) 50 ML SYRINGE IV PRN (09:49)
[2021-07-24] MEDS: TAMSULOSIN 0.4 MG CAP PO SCH (10:20)
[2021-07-24] MEDS: amLODIPine 5 MG TAB PO SCH (10:20)
--- NOTE | 2021-07-24 11:32 | Electrocardiograph Report ---
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
--- NOTE | 2021-07-24 11:37 | Consultation ---
History of Present Illness - Reason for Consult Consult date: 07/24/21 acute renal failure - History of Present Illness This is a 50 year old male who presented to the E.R with a chief complaint of nausea and vomiting and abdominal pain for 3 days. On evaluation, patient was found to have an elevated blood glucose level of 692 and serum creatinine of 3.1. Review of labs in system in April 2020 showed serum creatinine 0.9 and 1.0. Patient has history of Hypertension, Diabetes Mellitus, Bilateral BKA and CABG. We are being consulted for management of this patient's Acute Renal Failure. Past History Past Medical History: CAD, diabetes, hypertension Past Surgical History: CABG, Other (Bilateral BKA) Social history: no significant social history Family history: no significant family history Medications and Allergies Allergies Allergy/AdvReac Type Severity Reaction Status Date / Time No Known Allergies Allergy Verified 04/18/20 10:21 Home Medications Medication Instructions Recorded Confirmed Last Taken Type HumuLIN R 6 units SUB-Q AC #5 pen 05/01/20 Unknown Rx Levemir Flextouch 30 units SUB-Q DAILY #5 pen 05/01/20 Unknown Rx Tamsulosin [Flomax] 0.4 mg PO QDAY #30 capsule 05/01/20 Unknown Rx amLODIPine 5 mg PO QDAY 30 Days #30 tablet 05/01/20 Unknown Rx levoFLOXacin [Levaquin TAB] 750 mg PO Q24H #5 tablet 05/01/20 Unknown Rx Active Meds: Active Medications Acetaminophen (Acetaminophen 325 Mg Tab) 650 mg PO Q4H PRN PRN Reason: Pain MILD(1-3)/Fever >100.5/CUELLO Albuterol (Albuterol 2.5 Mg/3 Ml Nebu) 2.5 mg IH Q4HRT PRN PRN Reason: Shortness Of Breath Albuterol/Ipratropium (Ipratropium/Albuterol Sulfate 3 Ml Ampul.Neb) 1 ampul IH Q6HRT [facility] Amlodipine Besylate (Amlodipine 5 Mg Tab) 5 mg PO QDAY [facility] Last Admin: 07/24/21 10:20 Dose: Not Given Documented by: Dextrose (Dextrose 50% In Water (25gm) 50 Ml Syringe) 50 ml IV Q30MIN PRN; Protocol PRN Reason: Hypoglycemia Famotidine (Famotidine 20 Mg/2 Ml Inj) 20 mg IV QAM [facility] Heparin Sodium (Porcine) (Heparin 5,000 Unit/1 Ml Vial) 5,000 unit SUB-Q Q12HR [facility] Hydromorphone HCl (Hydromorphone 1 Mg/1 Ml Inj) 0.5 mg IV Q3H PRN PRN Reason: Pain , Severe (7-10) Insulin Human Regular 100 (units/ Sodium Chloride) 100 mls @ 1 mls/hr IV TITR [facility]; Protocol Last Titration: 07/24/21 07:54 Dose: 11 units/hr, 11 mls/hr Documented by: Sodium Chloride (Nacl 0.9% 1000 Ml) 1,000 mls @ 150 mls/hr IV DIRECT [facility] Last Admin: 07/24/21 04:54 Dose: 150 mls/hr Documented by: Insulin Human Regular (Insulin Regular, Human 100 Units/1 Ml) 0 units SUB-Q Q4H [facility]; Protocol Ondansetron HCl (Ondansetron 4 Mg/2 Ml Inj) 4 mg IV Q8H PRN PRN Reason: Nausea And Vomiting Oxycodone/Acetaminophen (Oxycodone /Acetaminophen 5-325mg Tab) 1 tab PO Q6H PRN PRN Reason: Pain, Moderate (4-6) Sodium Chloride (Sodium Chloride 0.9% 10 Ml Flush Syringe) 10 ml IV BID JULIO C Sodium Chloride (Sodium Chloride 0.9% 10 Ml Flush Syringe) 10 ml IV PRN PRN PRN Reason: LINE FLUSH Tamsulosin HCl (Tamsulosin 0.4 Mg Cap) 0.4 mg PO QDAY [facility] Last Admin: 07/24/21 10:20 Dose: Not Given Documented by: Review of Systems Constitutional: fatigue, weakness, no weight loss, no weight gain, no fever, no chills Ears, nose, mouth and throat: no ear pain, no ear discharge, no tinnitis, no decreased hearing, no nose pain, no nasal congestion, no nasal discharge Cardiovascular: no chest pain, no orthopnea, no palpitations, no rapid/irregular heart beat, no lightheadedness, no shortness of breath Respiratory: no cough with sputum, no excessive sputum, no hemoptysis, no shortness of breath, no dyspnea on exertion Gastrointestinal: abdominal pain, nausea, vomiting, no diarrhea, no constipation, no change in bowel habits, no hematemesis Genitourinary Male: no dysuria, no hematuria, no flank pain, no discharge, no urinary frequency, no urinary hesitancy Rectal: no pain, no incontinence, no bleeding, no itching Musculoskeletal: no neck stiffness, no neck pain, no shooting arm pain, no arm numbness/tingling, no low back pain, no shooting leg pain Integumentary: no rash, no pruritis, no redness, no sores, no wounds, no jaundice Neurological: weakness, no transient paralysis, no paralysis, no parathesias, no numbness, no tingling, no seizures, no syncope, no tremors Psychiatric: no anxiety, no memory loss, no change in sleep habits, no sleep disturbances, no insomnia, no hypersomnia, no change in appetite, no change in libido Endocrine: no cold intolerance, no heat intolerance, no polyphagia, no excessive thirst, no polydipsia, no polyuria Exam - Vital Signs Vital signs: Vital Signs Pulse Resp BP 101 H 16 144/124 07/24/21 02:25 07/24/21 02:25 07/24/21 02:25 - General Appearance General appearance: well-developed, appears stated age, fatigue EENT: ATNC Neck: Present: neck supple Respiratory: Decreased Breath Sounds Heart: S1S2 Gastrointestinal: Present: normoactive bowel sounds Integumentary: warm and dry Neurologic: alert and oriented x3 Musculoskeletal: Present: other (Bilateral amputee) Results - Lab Results 07/24/21 02:43 07/24/21 12:59 Most recent lab results WBC 23.3 K/mm3 (4.5-11.0) H 07/24/21 02:43 RBC 5.54 M/mm3 (3.65-5.03) H 07/24/21 02:43 Hgb 15.8 gm/dl (11.8-15.2) H 07/24/21 02:43 Hct 50.6 % (35.5-45.6) H 07/24/21 02:43 MCV 91 fl (84-94) 07/24/21 02:43 MCH 29 pg (28-32) 07/24/21 02:43 MCHC 31 % (32-34) L 07/24/21 02:43 RDW 15.5 % (13.2-15.2) H 07/24/21 02:43 Plt Count 239 K/mm3 (140-440) 07/24/21 02:43 Add Manual Diff Complete 07/24/21 02:43 Total Counted 100 07/24/21 02:43 Seg Neutrophils % [employer] 07/24/21 02:43 Seg Neuts % (Manual) 93.0 % (40.0-70.0) H 07/24/21 02:43 Lymphocytes % (Manual) 5.0 % (13.4-35.0) L 07/24/21 02:43 Monocytes % (Manual) 2.0 % (0.0-7.3) 07/24/21 02:43 Nucleated RBC % Not Reportable 07/24/21 02:43 Seg Neutrophils # Man 21.7 K/mm3 (1.8-7.7) H 07/24/21 02:43 Band Neutrophils # 0.0 K/mm3 07/24/21 02:43 Lymphocytes # (Manual) 1.2 K/mm3 (1.2-5.4) 07/24/21 02:43 Abs React Lymphs (Man) 0.0 K/mm3 07/24/21 02:43 Monocytes # (Manual) 0.5 K/mm3 (0.0-0.8) 07/24/21 02:43 Eosinophils # (Manual) 0.0 K/mm3 (0.0-0.4) 07/24/21 02:43 Basophils # (Manual) 0.0 K/mm3 (0.0-0.1) 07/24/21 02:43 Metamyelocytes # 0.0 K/mm3 07/24/21 02:43 Myelocytes # 0.0 K/mm3 07/24/21 02:43 Promyelocytes # 0.0 K/mm3 07/24/21 02:43 Blast Cells # 0.0 K/mm3 07/24/21 02:43 WBC Morphology Not Reportable 07/24/21 02:43 Hypersegmented Neuts Not Reportable 07/24/21 02:43 Hyposegmented Neuts Not Reportable 07/24/21 02:43 Hypogranular Neuts Not Reportable 07/24/21 02:43 Smudge Cells Not Reportable 07/24/21 02:43 Toxic Granulation Not Reportable 07/24/21 02:43 Toxic Vacuolation Not Reportable 07/24/21 02:43 Dohle Bodies Not Reportable 07/24/21 02:43 Pelger-Huet Anomaly Not Reportable 07/24/21 02:43 Juanita Rods Not Reportable 07/24/21 02:43 Platelet Estimate Consistent w auto 07/24/21 02:43 Clumped Platelets Not Reportable 07/24/21 02:43 Plt Clumps, EDTA Not Reportable 07/24/21 02:43 Large Platelets Not Reportable 07/24/21 02:43 Giant Platelets Not Reportable 07/24/21 02:43 Platelet Satelliting Not Reportable 07/24/21 02:43 Plt Morphology Comment Not Reportable 07/24/21 02:43 RBC Morphology Normal 07/24/21 02:43 Dimorphic RBCs Not Reportable 07/24/21 02:43 Polychromasia Not Reportable 07/24/21 02:43 Hypochromasia Not Reportable 07/24/21 02:43 Poikilocytosis Not Reportable 07/24/21 02:43 Anisocytosis Not Reportable 07/24/21 02:43 Microcytosis Not Reportable 07/24/21 02:43 Macrocytosis Not Reportable 07/24/21 02:43 Spherocytes Not Reportable 07/24/21 02:43 Pappenheimer Bodies Not Reportable 07/24/21 02:43 Sickle Cells Not Reportable 07/24/21 02:43 Target Cells Not Reportable 07/24/21 02:43 Tear Drop Cells Not Reportable 07/24/21 02:43 Ovalocytes Not Reportable 07/24/21 02:43 Helmet Cells Not Reportable 07/24/21 02:43 Ul[place] Bodies Not Reportable 07/24/21 02:43 [place] Rings Not Reportable 07/24/21 02:43 [place] Cells Not Reportable 07/24/21 02:43 Bite Cells Not Reportable 07/24/21 02:43 Crenated Cell Not Reportable 07/24/21 02:43 Elliptocytes Not Reportable 07/24/21 02:43 Acanthocytes (Spur) Not Reportable 07/24/21 02:43 Rouleaux Not Reportable 07/24/21 02:43 Hemoglobin C Crystals Not Reportable 07/24/21 02:43 Schistocytes Not Reportable 07/24/21 02:43 Malaria parasites Not Reportable 07/24/21 02:43 [place] Bodies Not Reportable 07/24/21 02:43 Hem Pathologist Commnt No 07/24/21 02:43 VBG pH 7.206 (7.320-7.420) L 07/24/21 03:40 Sodium 135 mmol/L (137-145) L 07/24/21 05:48 Potassium 4.9 mmol/L (3.6-5.0) 07/24/21 05:48 Chloride 93.8 mmol/L (98-107) L 07/24/21 05:48 Carbon Dioxide 18 mmol/L (22-30) L 07/24/21 05:48 Anion Gap 28 mmol/L 07/24/21 05:48 BUN 71 mg/dL (9-20) H 07/24/21 05:48 Creatinine 3.1 mg/dL (0.8-1.3) H 07/24/21 05:48 Estimated GFR 26 ml/min 07/24/21 05:48 BUN/Creatinine Ratio 23 % 07/24/21 05:48 Glucose 692 mg/dL (75-100) H* 07/24/21 05:48 POC Glucose 451 mg/dL (70-105) H 07/24/21 10:08 Ketones Quantitative Small (Negative) 07/24/21 02:43 Lactic Acid 2.30 mmol/L (0.7-2.0) H* 07/24/21 05:48 Calcium 8.8 mg/dL (8.4-10.2) 07/24/21 05:48 Phosphorus 4.20 mg/dL (2.5-4.5) 07/24/21 05:48 Magnesium 2.90 mg/dL (1.7-2.3) H 07/24/21 05:48 Total Bilirubin 0.20 mg/dL (0.1-1.2) 07/24/21 02:43 Direct Bilirubin < 0.2 mg/dL (0-0.2) 07/24/21 02:43 Indirect Bilirubin 0.0 mg/dL 07/24/21 02:43 AST 47 units/L (5-40) H 07/24/21 02:43 ALT 15 units/L (7-56) 07/24/21 02:43 Alkaline Phosphatase 199 units/L (35-129) H 07/24/21 02:43 Total Protein 8.1 g/dL (6.3-8.2) 07/24/21 02:43 Albumin 3.2 g/dL (3.9-5) L 07/24/21 02:43 Albumin/Globulin Ratio 0.7 % 07/24/21 02:43 Lipase 11 units/L (13-60) L 07/24/21 02:43 Urine Color Yellow (Yellow) 07/24/21 Unknown Urine Turbidity Slightly-cloudy (Clear) 07/24/21 Unknown Urine pH 5.0 (5.0-7.0) 07/24/21 Unknown Ur Specific [place] 1.022 (1.003-1.030) 07/24/21 Unknown Urine Protein 100 mg/dl mg/dL (Negative) 07/24/21 Unknown Urine Glucose (UA) >=500 mg/dL (Negative) 07/24/21 Unknown Urine Ketones 20 mg/dL (Negative) 07/24/21 Unknown Urine Blood Lg (Negative) 07/24/21 Unknown Urine Nitrite Neg (Negative) 07/24/21 Unknown Urine Bilirubin Neg (Negative) 07/24/21 Unknown Urine Urobilinogen < 2.0 mg/dL (<2.0) 07/24/21 Unknown Ur Leukocyte Esterase Neg (Negative) 07/24/21 Unknown Urine WBC (Auto) 1.0 /HPF (0.0-6.0) 07/24/21 Unknown Urine RBC (Auto) 1.0 /HPF (0.0-6.0) 07/24/21 Unknown Urine Mucus Few /HPF 07/24/21 Unknown Assessment and Plan Assessment: DKA Acute Renal Failure Hypertension Diabetes Mellitus Leukocytosis Plan: -Renal labs reviewed. Serum creatinine 3.1 today, baseline serum creatinine 1.0 -Obtain renal ultrasound -Obtain urine lytes and protein labs -Continue on IVF with NS -DKA-on insulin drip -Avoid nephrotoxic agents -Renally dose medications -Obtain daily weights -Monitor I/O's daily -Monitor renal function closely -Plan of care reviewed by Dr. Garcia
[2021-07-24] MEDS: INSULIN REGULAR, HUMAN 100 UNITS/1 ML SUB-Q SCH ×3 (11:55→22:19)
[2021-07-24] MEDS: HEPARIN 5,000 UNIT/1 ML VIAL SUB-Q SCH (11:56)
--- NOTE | 2021-07-24 12:17 | Progress Note ---
Assessment and Plan Assessment and plan: 1. Diabetic Ketoacidosis DKA protocol ordered Insulin drip as per protocol. Transition to lantus once gap closed and BG < 250. IV fluid normal saline at the rate of 150 cc/h. IV access has been difficult. IV team called by ED staff multiple times ...awaiting placement. patient absolutely needs this for insulin gtt In the interim will use high dose SSI regimen. Follow GAP on serial BMP's Critical care following. 2. Diabetes Mellitus with Hyperglycemia Insulin drip as per protocol. We do the serial BMP. IV fluid normal saline at the rate of 150 cc/h. Will consult critical care evaluation. Recheck CBC BMP in the morning 3. Hyperkalemia Avoid nephrotoxic drug. Insulin drip as per protocol. Calcium gluconate 1 g IV x1 dose. Sodium bicarb 50 mEq IV x1 dose. We consulted nephrology for further evaluation and treatment. Case discussed with nephrology. Recheck BMP in the morning 4. Acute renal failure vs ESRD. Avoid nephrotoxic drug. Normal saline at the rate of 150 cc/h. Renally dose medication. Serial BMP. Consult nephrology for further evaluation and treatment 5.CAD Stable. We will continue the home medication 6. Hyperglycemia Insulin protocol as above. 7. Hypertension Amlodipine 5 mg p.o. daily. We continue the home medication. We will monitor the patient closely Code status: Full Code DVT: Heparin 5000 U subq bid Diet: NPO - Patient Problems (1) Diabetic ketoacidosis Current Visit: Yes Status: Acute (2) Diabetes mellitus with hyperglycemia Current Visit: Yes Status: Acute (3) CAD (coronary artery disease) Current Visit: Yes Status: Acute (4) Hyperkalemia Current Visit: Yes Status: Acute (5) Hypertension Current Visit: Yes Status: Acute (6) MARYELLEN (acute kidney injury) Current Visit: No Status: Acute (7) Hyperglycemia Current Visit: No Status: Acute History Interval history: No overnight events. Attempting to get IV for insulin gtt. Hospitalist Physical - Physical exam Narrative exam: General appearance: Present: no acute distress, thin male - EENT Eyes: Present: PERRL ENT: hearing intact, clear oral mucosa - Neck Neck: Present: supple, normal ROM - Respiratory Respiratory effort: normal Respiratory: bilateral: CTA - Cardiovascular Heart Sounds: Present: S1 & S2. 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, strength equal bilaterally - Psychiatric Psychiatric: appropriate mood/affect, intact judgment & insight - Neurologic Neurologic: CNII-XII intact, moves all extremities - Constitutional Vitals: Temp Pulse Resp BP Pulse Ox 96.5 F L 104 H 25 H 127/82 95 07/24/21 03:53 07/24/21 08:15 07/24/21 07:01 07/24/21 08:15 07/24/21 06:45 General appearance: Present: no acute distress, well-nourished Results - Labs CBC & Chem 7: 07/24/21 02:43 07/24/21 05:48 Labs: Laboratory Last Values WBC 23.3 K/mm3 (4.5-11.0) H 07/24/21 02:43 RBC 5.54 M/mm3 (3.65-5.03) H 07/24/21 02:43 Hgb 15.8 gm/dl (11.8-15.2) H 07/24/21 02:43 Hct 50.6 % (35.5-45.6) H 07/24/21 02:43 MCV 91 fl (84-94) 07/24/21 02:43 MCH 29 pg (28-32) 07/24/21 02:43 MCHC 31 % (32-34) L 07/24/21 02:43 RDW 15.5 % (13.2-15.2) H 07/24/21 02:43 Plt Count 239 K/mm3 (140-440) 07/24/21 02:43 Add Manual Diff Complete 07/24/21 02:43 Total Counted 100 07/24/21 02:43 Seg Neutrophils % Catcher Filter Tip 07/24/21 02:43 Seg Neuts % (Manual) 93.0 % (40.0-70.0) H 07/24/21 02:43 Lymphocytes % (Manual) 5.0 % (13.4-35.0) L 07/24/21 02:43 Monocytes % (Manual) 2.0 % (0.0-7.3) 07/24/21 02:43 Nucleated RBC % Not Reportable 07/24/21 02:43 Seg Neutrophils # Man 21.7 K/mm3 (1.8-7.7) H 07/24/21 02:43 Band Neutrophils # 0.0 K/mm3 07/24/21 02:43 Lymphocytes # (Manual) 1.2 K/mm3 (1.2-5.4) 07/24/21 02:43 Abs React Lymphs (Man) 0.0 K/mm3 07/24/21 02:43 Monocytes # (Manual) 0.5 K/mm3 (0.0-0.8) 07/24/21 02:43 Eosinophils # (Manual) 0.0 K/mm3 (0.0-0.4) 07/24/21 02:43 Basophils # (Manual) 0.0 K/mm3 (0.0-0.1) 07/24/21 02:43 Metamyelocytes # 0.0 K/mm3 07/24/21 02:43 Myelocytes # 0.0 K/mm3 07/24/21 02:43 Promyelocytes # 0.0 K/mm3 07/24/21 02:43 Blast Cells # 0.0 K/mm3 07/24/21 02:43 WBC Morphology Not Reportable 07/24/21 02:43 Hypersegmented Neuts Not Reportable 07/24/21 02:43 Hyposegmented Neuts Not Reportable 07/24/21 02:43 Hypogranular Neuts Not Reportable 07/24/21 02:43 Smudge Cells Not Reportable 07/24/21 02:43 Toxic Granulation Not Reportable 07/24/21 02:43 Toxic Vacuolation Not Reportable 07/24/21 02:43 Dohle Bodies Not Reportable 07/24/21 02:43 Pelger-Huet Anomaly Not Reportable 07/24/21 02:43 Juanita Rods Not Reportable 07/24/21 02:43 Platelet Estimate Consistent w auto 07/24/21 02:43 Clumped Platelets Not Reportable 07/24/21 02:43 Plt Clumps, EDTA Not Reportable 07/24/21 02:43 Large Platelets Not Reportable 07/24/21 02:43 Giant Platelets Not Reportable 07/24/21 02:43 Platelet Satelliting Not Reportable 07/24/21 02:43 Plt Morphology Comment Not Reportable 07/24/21 02:43 RBC Morphology Normal 07/24/21 02:43 Dimorphic RBCs Not Reportable 07/24/21 02:43 Polychromasia Not Reportable 07/24/21 02:43 Hypochromasia Not Reportable 07/24/21 02:43 Poikilocytosis Not Reportable 07/24/21 02:43 Anisocytosis Not Reportable 07/24/21 02:43 Microcytosis Not Reportable 07/24/21 02:43 Macrocytosis Not Reportable 07/24/21 02:43 Spherocytes Not Reportable 07/24/21 02:43 Pappenheimer Bodies Not Reportable 07/24/21 02:43 Sickle Cells Not Reportable 07/24/21 02:43 Target Cells Not Reportable 07/24/21 02:43 Tear Drop Cells Not Reportable 07/24/21 02:43 Ovalocytes Not Reportable 07/24/21 02:43 Helmet Cells Not Reportable 07/24/21 02:43 [place] Bodies Not Reportable 07/24/21 02:43 [place] Rings Not Reportable 07/24/21 02:43 [place] Cells Not Reportable 07/24/21 02:43 Bite Cells Not Reportable 07/24/21 02:43 Crenated Cell Not Reportable 07/24/21 02:43 Elliptocytes Not Reportable 07/24/21 02:43 Acanthocytes (Spur) Not Reportable 07/24/21 02:43 Rouleaux Not Reportable 07/24/21 02:43 Hemoglobin C Crystals Not Reportable 07/24/21 02:43 Schistocytes Not Reportable 07/24/21 02:43 Malaria parasites Not Reportable 07/24/21 02:43 [place] Bodies Not Reportable 07/24/21 02:43 Hem Pathologist Commnt No 07/24/21 02:43 VBG pH 7.206 (7.320-7.420) L 07/24/21 03:40 Sodium 135 mmol/L (137-145) L 07/24/21 05:48 Potassium 4.9 mmol/L (3.6-5.0) 07/24/21 05:48 Chloride 93.8 mmol/L (98-107) L 07/24/21 05:48 Carbon Dioxide 18 mmol/L (22-30) L 07/24/21 05:48 Anion Gap 28 mmol/L 07/24/21 05:48 BUN 71 mg/dL (9-20) H 07/24/21 05:48 Creatinine 3.1 mg/dL (0.8-1.3) H 07/24/21 05:48 Estimated GFR 26 ml/min 07/24/21 05:48 BUN/Creatinine Ratio 23 % 07/24/21 05:48 Glucose 692 mg/dL (75-100) H* 07/24/21 05:48 POC Glucose 493 mg/dL (70-105) H 07/24/21 11:41 Ketones Quantitative Small (Negative) 07/24/21 02:43 Lactic Acid 2.30 mmol/L (0.7-2.0) H* 07/24/21 05:48 Calcium 8.8 mg/dL (8.4-10.2) 07/24/21 05:48 Phosphorus 4.20 mg/dL (2.5-4.5) 07/24/21 05:48 Magnesium 2.90 mg/dL (1.7-2.3) H 07/24/21 05:48 Total Bilirubin 0.20 mg/dL (0.1-1.2) 07/24/21 02:43 Direct Bilirubin < 0.2 mg/dL (0-0.2) 07/24/21 02:43 Indirect Bilirubin 0.0 mg/dL 07/24/21 02:43 AST 47 units/L (5-40) H 07/24/21 02:43 ALT 15 units/L (7-56) 07/24/21 02:43 Alkaline Phosphatase 199 units/L (35-129) H 07/24/21 02:43 Total Protein 8.1 g/dL (6.3-8.2) 07/24/21 02:43 Albumin 3.2 g/dL (3.9-5) L 07/24/21 02:43 Albumin/Globulin Ratio 0.7 % 07/24/21 02:43 Lipase 11 units/L (13-60) L 07/24/21 02:43 Urine Color Yellow (Yellow) 07/24/21 Unknown Urine Turbidity Slightly-cloudy (Clear) 07/24/21 Unknown Urine pH 5.0 (5.0-7.0) 07/24/21 Unknown Ur Specific [place] 1.022 (1.003-1.030) 07/24/21 Unknown Urine Protein 100 mg/dl mg/dL (Negative) 07/24/21 Unknown Urine Glucose (UA) >=500 mg/dL (Negative) 07/24/21 Unknown Urine Ketones 20 mg/dL (Negative) 07/24/21 Unknown Urine Blood Lg (Negative) 07/24/21 Unknown Urine Nitrite Neg (Negative) 07/24/21 Unknown Urine Bilirubin Neg (Negative) 07/24/21 Unknown Urine Urobilinogen < 2.0 mg/dL (<2.0) 07/24/21 Unknown Ur Leukocyte Esterase Neg (Negative) 07/24/21 Unknown Urine WBC (Auto) 1.0 /HPF (0.0-6.0) 07/24/21 Unknown Urine RBC (Auto) 1.0 /HPF (0.0-6.0) 07/24/21 Unknown Urine Mucus Few /HPF 07/24/21 Unknown Active Medications - Current Medications Current Medications: Generic Name Dose Route Start Last Admin Trade Name Freq PRN Reason Stop Dose Admin Acetaminophen 650 mg 07/24/21 04:06 Acetaminophen 325 Mg Tab PO Q4H PRN Pain MILD(1-3)/Fever >100.5/CUELLO Albuterol 2.5 mg 07/24/21 04:06 Albuterol 2.5 Mg/3 Ml Nebu IH Q4HRT PRN Shortness Of Breath Albuterol/Ipratropium 1 ampul 07/24/21 08:00 Ipratropium/Albuterol Sulfate 3 Ml Ampul.Neb IH Q6HRT JULIO C Amlodipine Besylate 5 mg 07/24/21 10:00 07/24/21 10:20 Amlodipine 5 Mg Tab PO Not Given QDAY JULIO C Dextrose 50 ml 07/24/21 09:49 Dextrose 50% In Water (25gm) 50 Ml Syringe IV Q30MIN PRN Hypoglycemia Protocol Famotidine 20 mg 07/24/21 10:00 Famotidine 20 Mg/2 Ml Inj IV QAM JULIO C Heparin Sodium (Porcine) 5,000 unit 07/24/21 10:00 07/24/21 11:56 Heparin 5,000 Unit/1 Ml Vial SUB-Q 5,000 unit Q12HR JULIO C Administration Hydromorphone HCl 0.5 mg 07/24/21 04:06 Hydromorphone 1 Mg/1 Ml Inj IV Q3H PRN Pain , Severe (7-10) Insulin Human Regular 100 100 mls @ 1 mls/hr 07/24/21 04:00 07/24/21 11:55 units/ Sodium Chloride IV 11 units/hr TITR JULIO C 11 mls/hr Titration Protocol 1 UNITS/HR Sodium Chloride 1,000 mls @ 150 mls/hr 07/24/21 04:15 07/24/21 04:54 Nacl 0.9% 1000 Ml IV 150 mls/hr DIRECT JULIO C Administration Insulin Human Regular 0 units 07/24/21 10:00 07/24/21 11:55 Insulin Regular, Human 100 Units/1 Ml SUB-Q 10 units Q4H JULIO C Administration Protocol Ondansetron HCl 4 mg 07/24/21 04:06 Ondansetron 4 Mg/2 Ml Inj IV Q8H PRN Nausea And Vomiting Oxycodone/Acetaminophen 1 tab 07/24/21 04:06 Oxycodone /Acetaminophen 5-325mg Tab PO Q6H PRN Pain, Moderate (4-6) Sodium Chloride 10 ml 07/24/21 10:00 Sodium Chloride 0.9% 10 Ml Flush Syringe IV BID JULIO C Sodium Chloride 10 ml 07/24/21 04:06 Sodium Chloride 0.9% 10 Ml Flush Syringe IV PRN PRN LINE FLUSH Tamsulosin HCl 0.4 mg 07/24/21 10:00 07/24/21 10:20 Tamsulosin 0.4 Mg Cap PO Not Given QDAY JULIO C Nutrition/Malnutrition Assess - Dietary Evaluation Nutrition/Malnutrition Findings: Nutrition Notes Start: 07/24/21 08:53 Freq: Status: Active Protocol: Document 07/24/21 08:53 (Rec: 07/24/21 08:56 MK [id number]) Nutrition Notes Need for Assessment generated from: MD Order,Education Initial or Follow up Brief Note Current Diagnosis Acute Kidney Injury,Coronary Artery Disease,Sepsis, Hypertension Other Pertinent Diagnosis DKA Current Diet NPO Labs/Tests BG 906 Subjective/Other Information MD consult for diet education. Pt on hold in ED. Nutrition Intervention Follow-Up By: 07/25/21 Additional Comments F/u: diet education
[2021-07-24 13:39] LABS: Calcium 9.3 mg/dL (8.4-10.2)
--- NOTE | 2021-07-24 15:14 | Consultation ---
History of Present Illness - Reason for Consult Consult date: 07/24/21 DKA - History of Present Illness 50 y/o with DKA Past History Past Medical History: CAD, diabetes, hypertension Past Surgical History: CABG, Other (Bilateral BKA) Social history: no significant social history Family history: no significant family history Medications and Allergies Allergies Allergy/AdvReac Type Severity Reaction Status Date / Time No Known Allergies Allergy Verified 04/18/20 10:21 Home Medications Medication Instructions Recorded Confirmed Last Taken Type HumuLIN R 6 units SUB-Q AC #5 pen 05/01/20 07/25/21 Unknown Rx Levemir Flextouch 30 units SUB-Q DAILY #5 pen 05/01/20 07/25/21 Unknown Rx Tamsulosin [Flomax] 0.4 mg PO QDAY #30 capsule 05/01/20 07/25/21 Unknown Rx amLODIPine 5 mg PO QDAY 30 Days #30 tablet 05/01/20 07/25/21 Unknown Rx levoFLOXacin [Levaquin TAB] 750 mg PO Q24H #5 tablet 05/01/20 07/25/21 Unknown Rx Active Meds: Active Medications Acetaminophen (Acetaminophen 325 Mg Tab) 650 mg PO Q4H PRN PRN Reason: Pain MILD(1-3)/Fever >100.5/CUELLO Albuterol (Albuterol 2.5 Mg/3 Ml Nebu) 2.5 mg IH Q4HRT PRN PRN Reason: Shortness Of Breath Albuterol/Ipratropium (Ipratropium/Albuterol Sulfate 3 Ml Ampul.Neb) 1 ampul IH Q6HRT [facility] Amlodipine Besylate (Amlodipine 5 Mg Tab) 5 mg PO QDAY [facility] Last Admin: 07/24/21 10:20 Dose: Not Given Documented by: Dextrose (Dextrose 50% In Water (25gm) 50 Ml Syringe) 50 ml IV Q30MIN PRN; Protocol PRN Reason: Hypoglycemia Famotidine (Famotidine 20 Mg/2 Ml Inj) 20 mg IV QAM [facility] Heparin Sodium (Porcine) (Heparin 5,000 Unit/1 Ml Vial) 5,000 unit SUB-Q Q12HR [facility] Last Admin: 07/24/21 11:56 Dose: 5,000 unit Documented by: Hydromorphone HCl (Hydromorphone 1 Mg/1 Ml Inj) 0.5 mg IV Q3H PRN PRN Reason: Pain , Severe (7-10) Insulin Human Regular 100 (units/ Sodium Chloride) 100 mls @ 1 mls/hr IV TITR S ; Protocol Last Titration: 07/24/21 14:42 Dose: Infused Documented by: Sodium Chloride (Nacl 0.9% 1000 Ml) 1,000 mls @ 150 mls/hr IV DIRECT JULIO C Last Admin: 07/24/21 04:54 Dose: 150 mls/hr Documented by: Insulin Human Regular (Insulin Regular, Human 100 Units/1 Ml) 0 units SUB-Q Q4H [facility]; Protocol Last Admin: 07/24/21 11:55 Dose: 10 units Documented by: Ondansetron HCl (Ondansetron 4 Mg/2 Ml Inj) 4 mg IV Q8H PRN PRN Reason: Nausea And Vomiting Oxycodone/Acetaminophen (Oxycodone /Acetaminophen 5-325mg Tab) 1 tab PO Q6H PRN PRN Reason: Pain, Moderate (4-6) Sodium Chloride (Sodium Chloride 0.9% 10 Ml Flush Syringe) 10 ml IV BID JULIO C Sodium Chloride (Sodium Chloride 0.9% 10 Ml Flush Syringe) 10 ml IV PRN PRN PRN Reason: LINE FLUSH Tamsulosin HCl (Tamsulosin 0.4 Mg Cap) 0.4 mg PO QDAY [facility] Last Admin: 07/24/21 10:20 Dose: Not Given Documented by: Exam - Constitutional Vitals: Temp Pulse Resp BP Pulse Ox 96.5 F L 104 H 25 H 127/82 95 07/24/21 03:53 07/24/21 08:15 07/24/21 07:01 07/24/21 08:15 07/24/21 06:45 Results - Labs CBC & Chem 7: 07/24/21 02:43 07/25/21 13:07 Labs: Abnormal lab results 07/24/21 07/24/21 07/24/21 Range/Units 02:43 02:43 03:40 WBC 23.3 H (4.5-11.0) K/mm3 RBC 5.54 H (3.65-5.03) M/mm3 Hgb 15.8 H (11.8-15.2) gm/dl Hct 50.6 H (35.5-45.6) % MCHC 31 L (32-34) % RDW 15.5 H (13.2-15.2) % Seg Neuts % (Manual) 93.0 H (40.0-70.0) % Lymphocytes % (Manual) 5.0 L (13.4-35.0) % Seg Neutrophils # Man 21.7 H (1.8-7.7) K/mm3 VBG pH (7.320-7.420) Sodium 126 L (137-145) mmol/L Potassium 7.7 H* (3.6-5.0) mmol/L Chloride 85.5 L (98-107) mmol/L Carbon Dioxide 15 L (22-30) mmol/L BUN 78 H (9-20) mg/dL Creatinine 3.5 H (0.8-1.3) mg/dL Glucose 906 H* (75-100) mg/dL POC Glucose (70-105) mg/dL Lactic Acid 2.20 H* (0.7-2.0) mmol/L Magnesium (1.7-2.3) mg/dL AST 47 H (5-40) units/L Alkaline Phosphatase 199 H (35-129) units/L Albumin 3.2 L (3.9-5) g/dL Lipase 11 L (13-60) units/L 07/24/21 07/24/21 07/24/21 Range/Units 03:40 04:01 04:01 WBC (4.5-11.0) K/mm3 RBC (3.65-5.03) M/mm3 Hgb (11.8-15.2) gm/dl Hct (35.5-45.6) % MCHC (32-34) % RDW (13.2-15.2) % Seg Neuts % (Manual) (40.0-70.0) % Lymphocytes % (Manual) (13.4-35.0) % Seg Neutrophils # Man (1.8-7.7) K/mm3 VBG pH 7.206 L (7.320-7.420) Sodium 134 L D (137-145) mmol/L Potassium 5.4 H D (3.6-5.0) mmol/L Chloride 90.5 L (98-107) mmol/L Carbon Dioxide 20 L (22-30) mmol/L BUN 76 H (9-20) mg/dL Creatinine 3.2 H (0.8-1.3) mg/dL Glucose 818 H* (75-100) mg/dL POC Glucose (70-105) mg/dL Lactic Acid (0.7-2.0) mmol/L Magnesium 2.70 H (1.7-2.3) mg/dL AST (5-40) units/L Alkaline Phosphatase (35-129) units/L Albumin (3.9-5) g/dL Lipase (13-60) units/L 07/24/21 07/24/21 07/24/21 Range/Units 05:47 05:48 05:48 WBC (4.5-11.0) K/mm3 RBC (3.65-5.03) M/mm3 Hgb (11.8-15.2) gm/dl Hct (35.5-45.6) % MCHC (32-34) % RDW (13.2-15.2) % Seg Neuts % (Manual) (40.0-70.0) % Lymphocytes % (Manual) (13.4-35.0) % Seg Neutrophils # Man (1.8-7.7) K/mm3 VBG pH (7.320-7.420) Sodium 135 L (137-145) mmol/L Potassium (3.6-5.0) mmol/L Chloride 93.8 L (98-107) mmol/L Carbon Dioxide 18 L (22-30) mmol/L BUN 71 H (9-20) mg/dL Creatinine 3.1 H (0.8-1.3) mg/dL Glucose 692 H* (75-100) mg/dL POC Glucose > 600 H (70-105) mg/dL Lactic Acid (0.7-2.0) mmol/L Magnesium 2.90 H (1.7-2.3) mg/dL AST (5-40) units/L Alkaline Phosphatase (35-129) units/L Albumin (3.9-5) g/dL Lipase (13-60) units/L 07/24/21 07/24/21 07/24/21 Range/Units 05:48 07:48 09:05 WBC (4.5-11.0) K/mm3 RBC (3.65-5.03) M/mm3 Hgb (11.8-15.2) gm/dl Hct (35.5-45.6) % MCHC (32-34) % RDW (13.2-15.2) % Seg Neuts % (Manual) (40.0-70.0) % Lymphocytes % (Manual) (13.4-35.0) % Seg Neutrophils # Man (1.8-7.7) K/mm3 VBG pH (7.320-7.420) Sodium (137-145) mmol/L Potassium (3.6-5.0) mmol/L Chloride (98-107) mmol/L Carbon Dioxide (22-30) mmol/L BUN (9-20) mg/dL Creatinine (0.8-1.3) mg/dL Glucose (75-100) mg/dL POC Glucose 595 H 464 H (70-105) mg/dL Lactic Acid 2.30 H* (0.7-2.0) mmol/L Magnesium (1.7-2.3) mg/dL AST (5-40) units/L Alkaline Phosphatase (35-129) units/L Albumin (3.9-5) g/dL Lipase (13-60) units/L 07/24/21 07/24/21 07/24/21 Range/Units 10:08 11:41 12:59 WBC (4.5-11.0) K/mm3 RBC (3.65-5.03) M/mm3 Hgb (11.8-15.2) gm/dl Hct (35.5-45.6) % MCHC (32-34) % RDW (13.2-15.2) % Seg Neuts % (Manual) (40.0-70.0) % Lymphocytes % (Manual) (13.4-35.0) % Seg Neutrophils # Man (1.8-7.7) K/mm3 VBG pH (7.320-7.420) Sodium (137-145) mmol/L Potassium 5.5 H (3.6-5.0) mmol/L Chloride (98-107) mmol/L Carbon Dioxide 18 L (22-30) mmol/L BUN 70 H (9-20) mg/dL Creatinine 2.7 H (0.8-1.3) mg/dL Glucose 529 H* (75-100) mg/dL POC Glucose 451 H 493 H (70-105) mg/dL Lactic Acid (0.7-2.0) mmol/L Magnesium (1.7-2.3) mg/dL AST (5-40) units/L Alkaline Phosphatase (35-129) units/L Albumin (3.9-5) g/dL Lipase (13-60) units/L 07/24/21 07/24/21 07/24/21 Range/Units 12:59 13:40 14:40 WBC (4.5-11.0) K/mm3 RBC (3.65-5.03) M/mm3 Hgb (11.8-15.2) gm/dl Hct (35.5-45.6) % MCHC (32-34) % RDW (13.2-15.2) % Seg Neuts % (Manual) (40.0-70.0) % Lymphocytes % (Manual) (13.4-35.0) % Seg Neutrophils # Man (1.8-7.7) K/mm3 VBG pH (7.320-7.420) Sodium (137-145) mmol/L Potassium (3.6-5.0) mmol/L Chloride (98-107) mmol/L Carbon Dioxide (22-30) mmol/L BUN (9-20) mg/dL Creatinine (0.8-1.3) mg/dL Glucose (75-100) mg/dL POC Glucose 462 H 389 H (70-105) mg/dL Lactic Acid 2.30 H* (0.7-2.0) mmol/L Magnesium (1.7-2.3) mg/dL AST (5-40) units/L Alkaline Phosphatase (35-129) units/L Albumin (3.9-5) g/dL Lipase (13-60) units/L Assessment and Plan 50 y/o with DKA ANion Gap closed Long acting insulin Diabetic education Will sign off.
[2021-07-24] MEDS: FAMOTIDINE 20 MG/2 ML INJ IV SCH (17:23)
[2021-07-24] MEDS ORDERED: ONDANSETRON 4 MG/2 ML INJ IM ONE (18:39)
[2021-07-24 21:21] LABS: Calcium 9.4 mg/dL (8.4-10.2)
[2021-07-25 03:30] LABS: Calcium 8.7 mg/dL (8.4-10.2)
[2021-07-25] MEDS: INSULIN REGULAR, HUMAN 100 UNITS/1 ML SUB-Q SCH ×10 (04:21→23:10)
[2021-07-25] MEDS: IPRATROPIUM/ALBUTEROL SULFATE 3 ML AMPUL.NEB IH SCH ×5 (07:42→20:59)
[2021-07-25] MEDS: INSULIN GLARGINE 100 UNITS/ML SUB-Q SCH ×2 (07:43→23:05)
[2021-07-25] MEDS: HEPARIN 5,000 UNIT/1 ML VIAL SUB-Q SCH ×3 (07:44→22:04)
--- NOTE | 2021-07-25 09:07 | Progress Note ---
Assessment and Plan DKA Acute Renal Failure Hypertension Diabetes Mellitus Leukocytosis Plan: -Cr is slowly trending down -No UOP recorded -Obtain renal ultrasound-pending -will switch IVF to 1/2 NS 150 cc/h due to rising sodium -DKA-on insulin drip -Avoid nephrotoxic agents -Renally dose medications -Obtain daily weights -Monitor I/O's daily -Monitor renal function closely Subjective Date of service: 07/25/21 Principal diagnosis: MARYELLEN Interval history: appears comfortable, no acute distress Objective - Vital Signs Vital signs: Vital Signs - 12hr 07/25/21 07/25/21 07/25/21 00:00 02:00 07:33 Temperature 97.5 F L Pulse Rate 98 H 101 H 109 H Respiratory 20 20 13 Rate Blood Pressure 91/53 Blood Pressure 110/67 108/66 [Left] O2 Sat by Pulse 99 99 Oximetry 07/25/21 07/25/21 07/25/21 07:45 08:01 08:15 Temperature Pulse Rate 108 H 107 H Respiratory 16 20 Rate Blood Pressure 128/79 117/76 128/79 Blood Pressure [Left] O2 Sat by Pulse 97 98 97 Oximetry - General Appearance General appearance: well-developed, well-nourished EENT: ATNC, PERRL, mucous membranes dry Neck: no JVD, no carotid bruit Respiratory: Present: Decreased Breath Sounds Cardiology: tachycardia Gastrointestinal: normoactive bowel sounds, no tenderness, no distended, no masses Integumentary: no rash, warm and dry Neurologic: no focal deficit Musculoskeletal: other (no edema in BLE) Psychiatric: cooperative - Lab 07/24/21 02:43 07/25/21 02:47 Most recent lab results Calcium 8.7 mg/dL (8.4-10.2) 07/25/21 02:47 Phosphorus 2.60 mg/dL (2.5-4.5) D 07/25/21 02:47 Magnesium 2.90 mg/dL (1.7-2.3) H 07/24/21 05:48 Medications & Allergies - Medications Allergies/Adverse Reactions: Allergies No Known Allergies Allergy (Verified 04/18/20 10:21) Home Medications: Home Medications Medication Instructions Recorded Confirmed Last Taken Type HumuLIN R 6 units SUB-Q AC #5 pen 05/01/20 07/25/21 Unknown Rx Levemir Flextouch 30 units SUB-Q DAILY #5 pen 05/01/20 07/25/21 Unknown Rx Tamsulosin [Flomax] 0.4 mg PO QDAY #30 capsule 05/01/20 07/25/21 Unknown Rx amLODIPine 5 mg PO QDAY 30 Days #30 tablet 05/01/20 07/25/21 Unknown Rx levoFLOXacin [Levaquin TAB] 750 mg PO Q24H #5 tablet 05/01/20 07/25/21 Unknown Rx Active Medications: Generic Name Dose Route Start Last Admin Trade Name Freq PRN Reason Stop Dose Admin Acetaminophen 650 mg 07/24/21 04:06 Acetaminophen 325 Mg Tab PO Q4H PRN Pain MILD(1-3)/Fever >100.5/CUELLO Albuterol 2.5 mg 07/24/21 04:06 Albuterol 2.5 Mg/3 Ml Nebu IH Q4HRT PRN Shortness Of Breath Albuterol/Ipratropium 1 ampul 07/24/21 08:00 07/25/21 07:44 Ipratropium/Albuterol Sulfate 3 Ml Ampul.Neb IH Not Given Q6HRT JULIO C Amlodipine Besylate 5 mg 07/24/21 10:00 07/24/21 10:20 Amlodipine 5 Mg Tab PO Not Given QDAY JULIO C Dextrose 50 ml 07/24/21 09:49 Dextrose 50% In Water (25gm) 50 Ml Syringe IV Q30MIN PRN Hypoglycemia Protocol Famotidine 20 mg 07/24/21 10:00 07/24/21 17:23 Famotidine 20 Mg/2 Ml Inj IV Not Given QAM JULIO C Heparin Sodium (Porcine) 5,000 unit 07/24/21 10:00 07/25/21 07:44 Heparin 5,000 Unit/1 Ml Vial SUB-Q Not Given Q12HR JULIO C Hydromorphone HCl 0.5 mg 07/24/21 04:06 Hydromorphone 1 Mg/1 Ml Inj IV Q3H PRN Pain , Severe (7-10) Insulin Human Regular 100 100 mls @ 1 mls/hr 07/24/21 04:00 07/24/21 17:05 units/ Sodium Chloride IV 6 units/hr TITR JULIO C 6 mls/hr Administration Protocol 1 UNITS/HR Insulin Glargine 10 units 07/24/21 18:30 07/25/21 07:43 Insulin Glargine 100 Units/Ml SUB-Q Not Given QHS [facility] Insulin Human Regular 0 units 07/24/21 10:00 07/25/21 07:42 Insulin Regular, Human 100 Units/1 Ml SUB-Q Not Given Q4H [facility] Protocol Insulin Human Regular 5 units 07/25/21 11:30 Insulin Regular, Human 100 Units/1 Ml SUB-Q ACHS [facility] Ondansetron HCl 4 mg 07/24/21 04:06 Ondansetron 4 Mg/2 Ml Inj IV Q8H PRN Nausea And Vomiting Oxycodone/Acetaminophen 1 tab 07/24/21 04:06 Oxycodone /Acetaminophen 5-325mg Tab PO Q6H PRN Pain, Moderate (4-6) Sodium Chloride 10 ml 07/24/21 10:00 07/25/21 07:45 Sodium Chloride 0.9% 10 Ml Flush Syringe IV Not Given BID JULIO C Sodium Chloride 10 ml 07/24/21 04:06 Sodium Chloride 0.9% 10 Ml Flush Syringe IV PRN PRN LINE FLUSH Sodium Chloride 150 ml 07/25/21 10:00 Sodium Chloride 0.45% 1000 Ml Iv Soln IV DIRECT [facility] Tamsulosin HCl 0.4 mg 07/24/21 10:00 07/24/21 10:20 Tamsulosin 0.4 Mg Cap PO Not Given QDAY [facility]
[2021-07-25] MEDS ORDERED: SODIUM CHLORIDE 0.45% 1000 ML IV SOLN IV SCH (10:00)
[2021-07-25] MEDS: amLODIPine 5 MG TAB PO SCH (10:16)
[2021-07-25] MEDS: TAMSULOSIN 0.4 MG CAP PO SCH (10:17)
[2021-07-25] MEDS: FAMOTIDINE 20 MG/2 ML INJ IV SCH (10:20)
[2021-07-25 10:45] LABS: Calcium 9.8 mg/dL (8.4-10.2)
[2021-07-25] MEDS ORDERED: SODIUM CHLORIDE 0.45% 1000 ML 1,000 ML IV SCH (11:00)
[2021-07-25] MEDS ORDERED: LIDOCAINE (1%) 10 MG/1 ML VIAL 20 ML MDV ONE (12:55)
[2021-07-25] MEDS ORDERED: LIDOCAINE-MPF (1%) 10 MG/1 ML VIAL 5 ML INFILTRATI SCH (13:00)
[2021-07-25 13:56] LABS: Calcium 9.6 mg/dL (8.4-10.2)
--- NOTE | 2021-07-25 15:06 | Ultrasound Report ---
ULTRASOUND RENAL INDICATION: renal failure COMPARISON: CT abdomen and pelvis 04/26/2020. FINDINGS: RIGHT KIDNEY: Size: 11.3 cm. Echogenicity: Normal. Cortical thickness: Normal. Stones: None. Hydronephrosis: None. Cyst or mass: None. LEFT KIDNEY: Size: 10.9 cm. Echogenicity: Normal. Cortical thickness: Normal. Stones: None. Hydronephrosis: None. Cyst or mass: None. Urinary Bladder: No significant abnormality. Free Fluid: None. Additional Findings: None. IMPRESSION: No acute sonographic abnormality of the kidneys Signer Name: Rony Mcmahan MD Signed: 07/25/2021 3:02 PM Workstation Name: [id number]
--- NOTE | 2021-07-25 16:38 | Progress Note ---
Assessment and Plan Assessment and plan: 1. Diabetic Ketoacidosis DKA protocol ordered Insulin drip as per protocol. Transition to lantus once gap closed and BG < 250. IV fluid normal saline at the rate of 150 cc/h. IV access has been difficult. IV team called by ED staff multiple times ...awaiting placement. patient absolutely needs this for insulin gtt In the interim will use high dose SSI regimen. Follow GAP on serial BMP's Critical care following. 2. Diabetes Mellitus with Hyperglycemia Insulin drip as per protocol. We do the serial BMP. IV fluid normal saline at the rate of 150 cc/h. Will consult critical care evaluation. Recheck CBC BMP in the morning 3. Hyperkalemia Avoid nephrotoxic drug. Insulin drip as per protocol. Calcium gluconate 1 g IV x1 dose. Sodium bicarb 50 mEq IV x1 dose. We consulted nephrology for further evaluation and treatment. Case discussed with nephrology. Recheck BMP in the morning 4. Acute renal failure vs ESRD. Avoid nephrotoxic drug. Normal saline at the rate of 150 cc/h. Renally dose medication. Serial BMP. Consult nephrology for further evaluation and treatment 5.CAD Stable. We will continue the home medication 6. Hyperglycemia Insulin protocol as above. 7. Hypertension Amlodipine 5 mg p.o. daily. We continue the home medication. We will monitor the patient closely Code status: Full Code DVT: Heparin 5000 U subq bid Diet: NPO Hospital course to date 07/25: Continues to be confused. Likely metabolic. IV access has been challenging. Will continue sliding scale insulin. BMP q4 hr until closed gap. Patient has [facility] service already per . was able to contact sister who helps care for patient. Once patient clinically improved will d/c home. - Patient Problems (1) Diabetic ketoacidosis Current Visit: Yes Status: Acute (2) Diabetes mellitus with hyperglycemia Current Visit: Yes Status: Acute (3) CAD (coronary artery disease) Current Visit: Yes Status: Acute (4) Hyperkalemia Current Visit: Yes Status: Acute (5) Hypertension Current Visit: Yes Status: Acute (6) MARYELLEN (acute kidney injury) Current Visit: No Status: Acute (7) Hyperglycemia Current Visit: No Status: Acute History Interval history: Oriented on AM encounter. Continues to be confused. Pulled IV line out of arms in afternoon. Hospitalist Physical - Physical exam Narrative exam: General appearance: Present: no acute distress, thin male - EENT Eyes: Present: PERRL ENT: hearing intact, clear oral mucosa - Neck Neck: Present: supple, normal ROM - Respiratory Respiratory effort: normal Respiratory: bilateral: CTA - Cardiovascular Heart Sounds: Present: S1 & S2. 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, strength equal bilaterally - Psychiatric Psychiatric: appropriate mood/affect, intact judgment & insight - Neurologic Neurologic: CNII-XII intact, moves all extremities - Constitutional Vitals: Temp Pulse Resp BP Pulse Ox 97.5 F L 87 18 106/74 99 07/25/21 00:00 07/25/21 16:21 07/25/21 16:21 07/25/21 16:21 07/25/21 16:21 General appearance: Present: no acute distress, well-nourished Results - Labs CBC & Chem 7: 07/24/21 02:43 07/25/21 13:07 Labs: Laboratory Last Values WBC 23.3 K/mm3 (4.5-11.0) H 07/24/21 02:43 RBC 5.54 M/mm3 (3.65-5.03) H 07/24/21 02:43 Hgb 15.8 gm/dl (11.8-15.2) H 07/24/21 02:43 Hct 50.6 % (35.5-45.6) H 07/24/21 02:43 MCV 91 fl (84-94) 07/24/21 02:43 MCH 29 pg (28-32) 07/24/21 02:43 MCHC 31 % (32-34) L 07/24/21 02:43 RDW 15.5 % (13.2-15.2) H 07/24/21 02:43 Plt Count 239 K/mm3 (140-440) 07/24/21 02:43 Add Manual Diff Complete 07/24/21 02:43 Total Counted 100 07/24/21 02:43 Seg Neutrophils % Cleaning Professional 07/24/21 02:43 Seg Neuts % (Manual) 93.0 % (40.0-70.0) H 07/24/21 02:43 Lymphocytes % (Manual) 5.0 % (13.4-35.0) L 07/24/21 02:43 Monocytes % (Manual) 2.0 % (0.0-7.3) 07/24/21 02:43 Nucleated RBC % Not Reportable 07/24/21 02:43 Seg Neutrophils # Man 21.7 K/mm3 (1.8-7.7) H 07/24/21 02:43 Band Neutrophils # 0.0 K/mm3 07/24/21 02:43 Lymphocytes # (Manual) 1.2 K/mm3 (1.2-5.4) 07/24/21 02:43 Abs React Lymphs (Man) 0.0 K/mm3 07/24/21 02:43 Monocytes # (Manual) 0.5 K/mm3 (0.0-0.8) 07/24/21 02:43 Eosinophils # (Manual) 0.0 K/mm3 (0.0-0.4) 07/24/21 02:43 Basophils # (Manual) 0.0 K/mm3 (0.0-0.1) 07/24/21 02:43 Metamyelocytes # 0.0 K/mm3 07/24/21 02:43 Myelocytes # 0.0 K/mm3 07/24/21 02:43 Promyelocytes # 0.0 K/mm3 07/24/21 02:43 Blast Cells # 0.0 K/mm3 07/24/21 02:43 WBC Morphology Not Reportable 07/24/21 02:43 Hypersegmented Neuts Not Reportable 07/24/21 02:43 Hyposegmented Neuts Not Reportable 07/24/21 02:43 Hypogranular Neuts Not Reportable 07/24/21 02:43 Smudge Cells Not Reportable 07/24/21 02:43 Toxic Granulation Not Reportable 07/24/21 02:43 Toxic Vacuolation Not Reportable 07/24/21 02:43 Dohle Bodies Not Reportable 07/24/21 02:43 Pelger-Huet Anomaly Not Reportable 07/24/21 02:43 Juanita Rods Not Reportable 07/24/21 02:43 Platelet Estimate Consistent w auto 07/24/21 02:43 Clumped Platelets Not Reportable 07/24/21 02:43 Plt Clumps, EDTA Not Reportable 07/24/21 02:43 Large Platelets Not Reportable 07/24/21 02:43 Giant Platelets Not Reportable 07/24/21 02:43 Platelet Satelliting Not Reportable 07/24/21 02:43 Plt Morphology Comment Not Reportable 07/24/21 02:43 RBC Morphology Normal 07/24/21 02:43 Dimorphic RBCs Not Reportable 07/24/21 02:43 Polychromasia Not Reportable 07/24/21 02:43 Hypochromasia Not Reportable 07/24/21 02:43 Poikilocytosis Not Reportable 07/24/21 02:43 Anisocytosis Not Reportable 07/24/21 02:43 Microcytosis Not Reportable 07/24/21 02:43 Macrocytosis Not Reportable 07/24/21 02:43 Spherocytes Not Reportable 07/24/21 02:43 Pappenheimer Bodies Not Reportable 07/24/21 02:43 Sickle Cells Not Reportable 07/24/21 02:43 Target Cells Not Reportable 07/24/21 02:43 Tear Drop Cells Not Reportable 07/24/21 02:43 Ovalocytes Not Reportable 07/24/21 02:43 Helmet Cells Not Reportable 07/24/21 02:43 Ulrich-Satilla Bodies Not Reportable 07/24/21 02:43 Rosalia Rings Not Reportable 07/24/21 02:43 [place] Cells Not Reportable 07/24/21 02:43 Bite Cells Not Reportable 07/24/21 02:43 Crenated Cell Not Reportable 07/24/21 02:43 Elliptocytes Not Reportable 07/24/21 02:43 Acanthocytes (Spur) Not Reportable 07/24/21 02:43 Rouleaux Not Reportable 07/24/21 02:43 Hemoglobin C Crystals Not Reportable 07/24/21 02:43 Schistocytes Not Reportable 07/24/21 02:43 Malaria parasites Not Reportable 07/24/21 02:43 [place] Bodies Not Reportable 07/24/21 02:43 Hem Pathologist Commnt No 07/24/21 02:43 VBG pH 7.206 (7.320-7.420) L 07/24/21 03:40 Sodium 146 mmol/L (137-145) H 07/25/21 13:07 Potassium 5.1 mmol/L (3.6-5.0) H 07/25/21 13:07 Chloride 110.8 mmol/L (98-107) H 07/25/21 13:07 Carbon Dioxide 22 mmol/L (22-30) 07/25/21 13:07 Anion Gap 18 mmol/L 07/25/21 13:07 BUN 63 mg/dL (9-20) H 07/25/21 13:07 Creatinine 2.3 mg/dL (0.8-1.3) H 07/25/21 13:07 Estimated GFR 37 ml/min 07/25/21 13:07 BUN/Creatinine Ratio 27 % 07/25/21 13:07 Glucose 86 mg/dL (75-100) 07/25/21 13:07 POC Glucose 77 mg/dL (70-105) 07/25/21 13:15 Ketones Quantitative Small (Negative) 07/24/21 02:43 Lactic Acid 3.00 mmol/L (0.7-2.0) H* 07/25/21 13:07 Calcium 9.6 mg/dL (8.4-10.2) 07/25/21 13:07 Phosphorus 2.60 mg/dL (2.5-4.5) D 07/25/21 02:47 Magnesium 2.90 mg/dL (1.7-2.3) H 07/24/21 05:48 Total Bilirubin 0.20 mg/dL (0.1-1.2) 07/24/21 02:43 Direct Bilirubin < 0.2 mg/dL (0-0.2) 07/24/21 02:43 Indirect Bilirubin 0.0 mg/dL 07/24/21 02:43 AST 47 units/L (5-40) H 07/24/21 02:43 ALT 15 units/L (7-56) 07/24/21 02:43 Alkaline Phosphatase 199 units/L (35-129) H 07/24/21 02:43 Ammonia 53.0 umol/L (25-60) 07/25/21 13:07 Total Protein 8.1 g/dL (6.3-8.2) 07/24/21 02:43 Albumin 3.2 g/dL (3.9-5) L 07/24/21 02:43 Albumin/Globulin Ratio 0.7 % 07/24/21 02:43 Lipase 11 units/L (13-60) L 07/24/21 02:43 Urine Color Yellow (Yellow) 07/24/21 Unknown Urine Turbidity Slightly-cloudy (Clear) 07/24/21 Unknown Urine pH 5.0 (5.0-7.0) 07/24/21 Unknown Ur Specific [place] 1.022 (1.003-1.030) 07/24/21 Unknown Urine Protein 100 mg/dl mg/dL (Negative) 07/24/21 Unknown Urine Glucose (UA) >=500 mg/dL (Negative) 07/24/21 Unknown Urine Ketones 20 mg/dL (Negative) 07/24/21 Unknown Urine Blood Lg (Negative) 07/24/21 Unknown Urine Nitrite Neg (Negative) 07/24/21 Unknown Urine Bilirubin Neg (Negative) 07/24/21 Unknown Urine Urobilinogen < 2.0 mg/dL (<2.0) 07/24/21 Unknown Ur Leukocyte Esterase Neg (Negative) 07/24/21 Unknown Urine WBC (Auto) 1.0 /HPF (0.0-6.0) 07/24/21 Unknown Urine RBC (Auto) 1.0 /HPF (0.0-6.0) 07/24/21 Unknown Urine Mucus Few /HPF 07/24/21 Unknown Active Medications - Current Medications Current Medications: Generic Name Dose Route Start Last Admin Trade Name Freq PRN Reason Stop Dose Admin Acetaminophen 650 mg 07/24/21 04:06 Acetaminophen 325 Mg Tab PO Q4H PRN Pain MILD(1-3)/Fever >100.5/CUELLO Albuterol 2.5 mg 07/24/21 04:06 Albuterol 2.5 Mg/3 Ml Nebu IH Q4HRT PRN Shortness Of Breath Albuterol/Ipratropium 1 ampul 07/24/21 08:00 07/25/21 09:10 Ipratropium/Albuterol Sulfate 3 Ml Ampul.Neb IH Not Given Q6HRT JULIO C Amlodipine Besylate 5 mg 07/24/21 10:00 07/25/21 10:16 Amlodipine 5 Mg Tab PO Not Given QDAY JULIO C Dextrose 50 ml 07/24/21 09:49 Dextrose 50% In Water (25gm) 50 Ml Syringe IV Q30MIN PRN Hypoglycemia Protocol Famotidine 20 mg 07/24/21 10:00 07/25/21 10:20 Famotidine 20 Mg/2 Ml Inj IV 20 mg QAM JULIO C Administration Heparin Sodium (Porcine) 5,000 unit 07/24/21 10:00 07/25/21 10:20 Heparin 5,000 Unit/1 Ml Vial SUB-Q 5,000 unit Q12HR JULIO C Administration Hydromorphone HCl 0.5 mg 07/24/21 04:06 Hydromorphone 1 Mg/1 Ml Inj IV Q3H PRN Pain , Severe (7-10) Insulin Human Regular 100 100 mls @ 1 mls/hr 07/24/21 04:00 07/24/21 17:05 units/ Sodium Chloride IV 6 units/hr TITR JULIO C 6 mls/hr Administration Protocol 1 UNITS/HR Sodium Chloride 1,000 mls @ 150 mls/hr 07/25/21 11:00 Nacl 0.45% 1000 Ml IV DIRECT [facility] Insulin Glargine 10 units 07/24/21 18:30 07/25/21 07:43 Insulin Glargine 100 Units/Ml SUB-Q Not Given QHS [facility] Insulin Human Regular 0 units 07/24/21 10:00 07/25/21 13:47 Insulin Regular, Human 100 Units/1 Ml SUB-Q Not Given Q4H [facility] Protocol Insulin Human Regular 5 units 07/25/21 11:30 07/25/21 11:56 Insulin Regular, Human 100 Units/1 Ml SUB-Q Not Given ACHS [facility] Ondansetron HCl 4 mg 07/24/21 04:06 Ondansetron 4 Mg/2 Ml Inj IV Q8H PRN Nausea And Vomiting Oxycodone/Acetaminophen 1 tab 07/24/21 04:06 Oxycodone /Acetaminophen 5-325mg Tab PO Q6H PRN Pain, Moderate (4-6) Sodium Chloride 10 ml 07/24/21 10:00 07/25/21 10:20 Sodium Chloride 0.9% 10 Ml Flush Syringe IV 10 ml BID JULIO C Administration Sodium Chloride 10 ml 07/24/21 04:06 Sodium Chloride 0.9% 10 Ml Flush Syringe IV PRN PRN LINE FLUSH Tamsulosin HCl 0.4 mg 07/24/21 10:00 07/25/21 10:17 Tamsulosin 0.4 Mg Cap PO Not Given QDAY JULIO C Nutrition/Malnutrition Assess - Dietary Evaluation Nutrition/Malnutrition Findings: Nutrition Notes Start: 07/24/21 08:53 Freq: Status: Active Protocol: Document 07/25/21 15:03 (Rec: 07/25/21 15:05 [id number]) Nutrition Notes Initial or Follow up Brief Note Current Diagnosis Acute Kidney Injury,Coronary Artery Disease,Sepsis, Hypertension Other Pertinent Diagnosis DKA Current Diet NPO Subjective/Other Information F/u for diet education. Pt on restraints. Nutrition Intervention Follow-Up By: 07/29/21 Additional Comments F/u: diet education
[2021-07-25 23:32] LABS: Calcium 8.6 mg/dL (8.4-10.2)
--- NOTE | 2021-07-26 03:50 | Event Note ---
Date: 07/26/21 Patient pulled out the IV port from right shoulder. Patient complained of right shoulder/swelling. We will do a chest x-ray as well as right shoulder x-ray and order stat CBC. We will monitor the patient closely
[2021-07-26] MEDS: INSULIN REGULAR, HUMAN 100 UNITS/1 ML SUB-Q SCH ×8 (04:02→18:00)
--- NOTE | 2021-07-26 04:22 | XRay Report ---
CHEST 1 VIEW INDICATION: Infiltration. COMPARISON: 2 days prior FINDINGS: Support devices: None. Heart: Normal. Lungs/Pleura: No acute pulmonary or pleural findings. IMPRESSION: 1. No acute findings. Signer Name: Kevin Parsons MD Signed: 07/26/2021 4:17 AM Workstation Name: [id number]
[2021-07-26] MEDS ORDERED: levoFLOXacin 750 MG TAB PO SCH (06:00)
[2021-07-26 06:04] LABS: Basophils # (Auto) 0.1 K/mm3 (0.0-0.1); Basophils % (Auto) 0.5 % (0.0-1.8); Eosinophils % (Auto) 0.1 % (0.0-4.3); Hematocrit 39.5 % (35.5-45.6); Lymphocytes # (Auto) 0.8 K/mm3 (1.2-5.4); Lymphocytes % (Auto) 4.9 % (13.4-35.0); Mean Corpuscular HGB Conc 33 % (32-34); Mean Corpuscular Volume 87 fl (84-94); Monocytes % (Auto) 6.1 % (0.0-7.3); Platelet Count 266 K/mm3 (140-440); Red Blood Count 4.53 M/mm3 (3.65-5.03); Red Cell Distribution Width 14.8 % (13.2-15.2)
[2021-07-26] MEDS: IPRATROPIUM/ALBUTEROL SULFATE 3 ML AMPUL.NEB IH SCH (06:08)
--- NOTE | 2021-07-26 08:23 | Progress Note ---
Assessment and Plan Assessment and plan: 1. Diabetic Ketoacidosis DKA protocol ordered Insulin drip as per protocol. Transition to lantus once gap closed and BG < 250. IV fluid normal saline at the rate of 150 cc/h. IV access has been difficult. IV team called by ED staff multiple times ...awaiting placement. patient absolutely needs this for insulin gtt In the interim will use high dose SSI regimen. Follow GAP on serial BMP's Critical care following. 2. Diabetes Mellitus with Hyperglycemia Insulin drip as per protocol. We do the serial BMP. IV fluid normal saline at the rate of 150 cc/h. Will consult critical care evaluation. Recheck CBC BMP in the morning 3. Hyperkalemia Avoid nephrotoxic drug. Insulin drip as per protocol. Calcium gluconate 1 g IV x1 dose. Sodium bicarb 50 mEq IV x1 dose. We consulted nephrology for further evaluation and treatment. Case discussed with nephrology. Recheck BMP in the morning 4. Acute renal failure vs ESRD. Avoid nephrotoxic drug. Normal saline at the rate of 150 cc/h. Renally dose medication. Serial BMP. Consult nephrology for further evaluation and treatment 5.CAD Stable. We will continue the home medication 6. Hyperglycemia Insulin protocol as above. 7. Hypertension Amlodipine 5 mg p.o. daily. We continue the home medication. We will monitor the patient closely Code status: Full Code DVT: Heparin 5000 U subq bid Diet: NPO Hospital course to date 07/25: Continues to be confused. Likely metabolic. IV access has been challenging. Will continue sliding scale insulin. BMP q4 hr until closed gap. Patient has [facility] service already per . was able to contact sister who helps care for patient. Once patient clinically improved will d/c home. - Patient Problems (1) Diabetic ketoacidosis Current Visit: Yes Status: Acute (2) Diabetes mellitus with hyperglycemia Current Visit: Yes Status: Acute (3) CAD (coronary artery disease) Current Visit: Yes Status: Acute (4) Hyperkalemia Current Visit: Yes Status: Acute (5) Hypertension Current Visit: Yes Status: Acute (6) MARYELLEN (acute kidney injury) Current Visit: No Status: Acute (7) Hyperglycemia Current Visit: No Status: Acute Hospitalist Physical - Physical exam Narrative exam: General appearance: Present: no acute distress, thin male - EENT Eyes: Present: PERRL ENT: hearing intact, clear oral mucosa - Neck Neck: Present: supple, normal ROM - Respiratory Respiratory effort: normal Respiratory: bilateral: CTA - Cardiovascular Heart Sounds: Present: S1 & S2. 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, strength equal bilaterally - Psychiatric Psychiatric: appropriate mood/affect, intact judgment & insight - Neurologic Neurologic: CNII-XII intact, moves all extremities - Constitutional Vitals: Temp Pulse Resp BP Pulse Ox 99.3 F 110 H 22 79/50 98 07/25/21 23:50 07/25/21 23:50 07/26/21 06:00 07/25/21 23:50 07/26/21 06:06 General appearance: Present: no acute distress, well-nourished Results - Labs CBC & Chem 7: 07/26/21 04:46 07/25/21 22:58 Labs: Laboratory Last Values WBC 16.2 K/mm3 (4.5-11.0) H 07/26/21 04:46 RBC 4.53 M/mm3 (3.65-5.03) 07/26/21 04:46 Hgb 13.0 gm/dl (11.8-15.2) 07/26/21 04:46 Hct 39.5 % (35.5-45.6) D 07/26/21 04:46 MCV 87 fl (84-94) 07/26/21 04:46 MCH 29 pg (28-32) 07/26/21 04:46 MCHC 33 % (32-34) 07/26/21 04:46 RDW 14.8 % (13.2-15.2) 07/26/21 04:46 Plt Count 266 K/mm3 (140-440) 07/26/21 04:46 Lymph % (Auto) 4.9 % (13.4-35.0) L 07/26/21 04:46 [place] % (Auto) 6.1 % (0.0-7.3) 07/26/21 04:46 Eos % (Auto) 0.1 % (0.0-4.3) 07/26/21 04:46 Baso % (Auto) 0.5 % (0.0-1.8) 07/26/21 04:46 Lymph # (Auto) 0.8 K/mm3 (1.2-5.4) L 07/26/21 04:46 [place] # (Auto) 1.0 K/mm3 (0.0-0.8) H 07/26/21 04:46 Eos # (Auto) 0.0 K/mm3 (0.0-0.4) 07/26/21 04:46 Baso # (Auto) 0.1 K/mm3 (0.0-0.1) 07/26/21 04:46 Add Manual Diff Complete 07/24/21 02:43 Total Counted 100 07/24/21 02:43 Seg Neutrophils % 88.4 % (40.0-70.0) H 07/26/21 04:46 Seg Neuts % (Manual) 93.0 % (40.0-70.0) H 07/24/21 02:43 Lymphocytes % (Manual) 5.0 % (13.4-35.0) L 07/24/21 02:43 Monocytes % (Manual) 2.0 % (0.0-7.3) 07/24/21 02:43 Nucleated RBC % Not Reportable 07/24/21 02:43 Seg Neutrophils # 14.4 K/mm3 (1.8-7.7) H 07/26/21 04:46 Seg Neutrophils # Man 21.7 K/mm3 (1.8-7.7) H 07/24/21 02:43 Band Neutrophils # 0.0 K/mm3 07/24/21 02:43 Lymphocytes # (Manual) 1.2 K/mm3 (1.2-5.4) 07/24/21 02:43 Abs React Lymphs (Man) 0.0 K/mm3 07/24/21 02:43 Monocytes # (Manual) 0.5 K/mm3 (0.0-0.8) 07/24/21 02:43 Eosinophils # (Manual) 0.0 K/mm3 (0.0-0.4) 07/24/21 02:43 Basophils # (Manual) 0.0 K/mm3 (0.0-0.1) 07/24/21 02:43 Metamyelocytes # 0.0 K/mm3 07/24/21 02:43 Myelocytes # 0.0 K/mm3 07/24/21 02:43 Promyelocytes # 0.0 K/mm3 07/24/21 02:43 Blast Cells # 0.0 K/mm3 07/24/21 02:43 WBC Morphology Not Reportable 07/24/21 02:43 Hypersegmented Neuts Not Reportable 07/24/21 02:43 Hyposegmented Neuts Not Reportable 07/24/21 02:43 Hypogranular Neuts Not Reportable 07/24/21 02:43 Smudge Cells Not Reportable 07/24/21 02:43 Toxic Granulation Not Reportable 07/24/21 02:43 Toxic Vacuolation Not Reportable 07/24/21 02:43 Dohle Bodies Not Reportable 07/24/21 02:43 Pelger-Huet Anomaly Not Reportable 07/24/21 02:43 Juanita Rods Not Reportable 07/24/21 02:43 Platelet Estimate Consistent w auto 07/24/21 02:43 Clumped Platelets Not Reportable 07/24/21 02:43 Plt Clumps, EDTA Not Reportable 07/24/21 02:43 Large Platelets Not Reportable 07/24/21 02:43 Giant Platelets Not Reportable 07/24/21 02:43 Platelet Satelliting Not Reportable 07/24/21 02:43 Plt Morphology Comment Not Reportable 07/24/21 02:43 RBC Morphology Normal 07/24/21 02:43 Dimorphic RBCs Not Reportable 07/24/21 02:43 Polychromasia Not Reportable 07/24/21 02:43 Hypochromasia Not Reportable 07/24/21 02:43 Poikilocytosis Not Reportable 07/24/21 02:43 Anisocytosis Not Reportable 07/24/21 02:43 Microcytosis Not Reportable 07/24/21 02:43 Macrocytosis Not Reportable 07/24/21 02:43 Spherocytes Not Reportable 07/24/21 02:43 Pappenheimer Bodies Not Reportable 07/24/21 02:43 Sickle Cells Not Reportable 07/24/21 02:43 Target Cells Not Reportable 07/24/21 02:43 Tear Drop Cells Not Reportable 07/24/21 02:43 Ovalocytes Not Reportable 07/24/21 02:43 Helmet Cells Not Reportable 07/24/21 02:43 [place] Bodies Not Reportable 07/24/21 02:43 [place]iner Rings Not Reportable 07/24/21 02:43 [place] Cells Not Reportable 07/24/21 02:43 Bite Cells Not Reportable 07/24/21 02:43 Crenated Cell Not Reportable 07/24/21 02:43 Elliptocytes Not Reportable 07/24/21 02:43 Acanthocytes (Spur) Not Reportable 07/24/21 02:43 Rouleaux Not Reportable 07/24/21 02:43 Hemoglobin C Crystals Not Reportable 07/24/21 02:43 Schistocytes Not Reportable 07/24/21 02:43 Malaria parasites Not Reportable 07/24/21 02:43 [place] Bodies Not Reportable 07/24/21 02:43 Hem Pathologist Commnt No 07/24/21 02:43 VBG pH 7.206 (7.320-7.420) L 07/24/21 03:40 Sodium 147 mmol/L (137-145) H 07/25/21 22:58 Potassium 4.9 mmol/L (3.6-5.0) 07/25/21 22:58 Chloride 106.5 mmol/L (98-107) 07/25/21 22:58 Carbon Dioxide 20 mmol/L (22-30) L 07/25/21 22:58 Anion Gap 25 mmol/L 07/25/21 22:58 BUN 69 mg/dL (9-20) H 07/25/21 22:58 Creatinine 2.6 mg/dL (0.8-1.3) H 07/25/21 22:58 Estimated GFR 32 ml/min 07/25/21 22:58 BUN/Creatinine Ratio 27 % 07/25/21 22:58 Glucose 376 mg/dL (75-100) H 07/25/21 22:58 POC Glucose 153 mg/dL (70-105) H 07/26/21 07:47 Ketones Quantitative Small (Negative) 07/24/21 02:43 Lactic Acid 3.00 mmol/L (0.7-2.0) H* 07/25/21 22:58 Calcium 8.6 mg/dL (8.4-10.2) 07/25/21 22:58 Phosphorus 2.60 mg/dL (2.5-4.5) D 07/25/21 02:47 Magnesium 2.90 mg/dL (1.7-2.3) H 07/24/21 05:48 Total Bilirubin 0.20 mg/dL (0.1-1.2) 07/24/21 02:43 Direct Bilirubin < 0.2 mg/dL (0-0.2) 07/24/21 02:43 Indirect Bilirubin 0.0 mg/dL 07/24/21 02:43 AST 47 units/L (5-40) H 07/24/21 02:43 ALT 15 units/L (7-56) 07/24/21 02:43 Alkaline Phosphatase 199 units/L (35-129) H 07/24/21 02:43 Ammonia 53.0 umol/L (25-60) 07/25/21 13:07 Total Protein 8.1 g/dL (6.3-8.2) 07/24/21 02:43 Albumin 3.2 g/dL (3.9-5) L 07/24/21 02:43 Albumin/Globulin Ratio 0.7 % 07/24/21 02:43 Lipase 11 units/L (13-60) L 07/24/21 02:43 Urine Color Yellow (Yellow) 07/24/21 Unknown Urine Turbidity Slightly-cloudy (Clear) 07/24/21 Unknown Urine pH 5.0 (5.0-7.0) 07/24/21 Unknown Ur Specific [place] 1.022 (1.003-1.030) 07/24/21 Unknown Urine Protein 100 mg/dl mg/dL (Negative) 07/24/21 Unknown Urine Glucose (UA) >=500 mg/dL (Negative) 07/24/21 Unknown Urine Ketones 20 mg/dL (Negative) 07/24/21 Unknown Urine Blood Lg (Negative) 07/24/21 Unknown Urine Nitrite Neg (Negative) 07/24/21 Unknown Urine Bilirubin Neg (Negative) 07/24/21 Unknown Urine Urobilinogen < 2.0 mg/dL (<2.0) 07/24/21 Unknown Ur Leukocyte Esterase Neg (Negative) 07/24/21 Unknown Urine WBC (Auto) 1.0 /HPF (0.0-6.0) 07/24/21 Unknown Urine RBC (Auto) 1.0 /HPF (0.0-6.0) 07/24/21 Unknown Urine Mucus Few /HPF 07/24/21 Unknown [place]/IV: Voiding Method Condom Catheter Active Medications - Current Medications Current Medications: Generic Name Dose Route Start Last Admin Trade Name Freq PRN Reason Stop Dose Admin Acetaminophen 650 mg 07/24/21 04:06 Acetaminophen 325 Mg Tab PO Q4H PRN Pain MILD(1-3)/Fever >100.5/CUELLO Albuterol 2.5 mg 07/24/21 04:06 Albuterol 2.5 Mg/3 Ml Nebu IH Q4HRT PRN Shortness Of Breath Amlodipine Besylate 5 mg 07/24/21 10:00 07/25/21 10:16 Amlodipine 5 Mg Tab PO Not Given QDAY JULIO C Dextrose 50 ml 07/24/21 09:49 Dextrose 50% In Water (25gm) 50 Ml Syringe IV Q30MIN PRN Hypoglycemia Protocol Famotidine 20 mg 07/24/21 10:00 07/25/21 10:20 Famotidine 20 Mg/2 Ml Inj IV 20 mg QAM JULIO C Administration Heparin Sodium (Porcine) 5,000 unit 07/24/21 10:00 07/25/21 22:04 Heparin 5,000 Unit/1 Ml Vial SUB-Q 5,000 unit Q12HR JULIO C Administration Hydromorphone HCl 0.5 mg 07/24/21 04:06 Hydromorphone 1 Mg/1 Ml Inj IV Q3H PRN Pain , Severe (7-10) Insulin Human Regular 100 100 mls @ 1 mls/hr 07/24/21 04:00 07/24/21 17:05 units/ Sodium Chloride IV 6 units/hr TITR JULIO C 6 mls/hr Administration Protocol 1 UNITS/HR Sodium Chloride 1,000 mls @ 150 mls/hr 07/25/21 11:00 07/25/21 23:05 Nacl 0.45% 1000 Ml IV 150 mls/hr DIRECT JULIO C Administration Insulin Glargine 10 units 07/24/21 18:30 07/25/21 23:05 Insulin Glargine 100 Units/Ml SUB-Q 10 units QHS JULIO C Administration Insulin Human Regular 0 units 07/24/21 10:00 07/26/21 06:37 Insulin Regular, Human 100 Units/1 Ml SUB-Q 4 units Q4H JULIO C Administration Protocol Insulin Human Regular 5 units 07/25/21 11:30 07/25/21 22:05 Insulin Regular, Human 100 Units/1 Ml SUB-Q 5 units ACHS JULIO C Administration Ondansetron HCl 4 mg 07/24/21 04:06 Ondansetron 4 Mg/2 Ml Inj IV Q8H PRN Nausea And Vomiting Oxycodone/Acetaminophen 1 tab 07/24/21 04:06 Oxycodone /Acetaminophen 5-325mg Tab PO Q6H PRN Pain, Moderate (4-6) Sodium Chloride 10 ml 07/24/21 10:00 07/25/21 23:09 Sodium Chloride 0.9% 10 Ml Flush Syringe IV 10 ml BID JULIO C Administration Sodium Chloride 10 ml 07/24/21 04:06 Sodium Chloride 0.9% 10 Ml Flush Syringe IV PRN PRN LINE FLUSH Tamsulosin HCl 0.4 mg 07/24/21 10:00 07/25/21 10:17 Tamsulosin 0.4 Mg Cap PO Not Given QDAY JULIO C Nutrition/Malnutrition Assess - Dietary Evaluation Nutrition/Malnutrition Findings: Nutrition Notes Start: 07/24/21 08:53 Freq: Status: Active Protocol: Document 07/25/21 15:03 TOBY (Rec: 07/25/21 15:05 TOBY [id number]) Nutrition Notes Initial or Follow up Brief Note Current Diagnosis Acute Kidney Injury,Coronary Artery Disease,Sepsis, Hypertension Other Pertinent Diagnosis DKA Current Diet NPO Subjective/Other Information F/u for diet education. Pt on restraints. Nutrition Intervention Follow-Up By: 07/29/21 Additional Comments F/u: diet education
--- NOTE | 2021-07-26 09:01 | Progress Note ---
Assessment and Plan DKA Acute Renal Failure Hypertension Diabetes Mellitus Leukocytosis Plan: -labs are pending this AM -Obtain renal ultrasound-pending -cont 1/2 NS -Avoid nephrotoxic agents -Renally dose medications -Obtain daily weights -Monitor I/O's daily -Monitor renal function closely Subjective Date of service: 07/26/21 Principal diagnosis: MARYELLEN Interval history: pulled IV line yesterday due to shoulder pain Objective - Vital Signs Vital signs: Vital Signs - 12hr 07/25/21 07/25/21 07/26/21 22:00 23:50 00:00 Temperature 99.3 F Pulse Rate 113 H 110 H Respiratory 22 20 22 Rate Blood Pressure 79/50 O2 Sat by Pulse 99 100 99 Oximetry 07/26/21 07/26/21 07/26/21 02:00 04:00 06:00 Temperature Pulse Rate Respiratory 22 22 22 Rate Blood Pressure O2 Sat by Pulse 99 99 99 Oximetry 07/26/21 06:06 Temperature Pulse Rate Respiratory Rate Blood Pressure O2 Sat by Pulse 98 Oximetry - General Appearance General appearance: well-developed, well-nourished EENT: ATNC, PERRL Neck: no JVD Respiratory: Present: Clear to Ascultation. Absent: Rales, Ronchi Cardiology: regular, S1S2 Gastrointestinal: normoactive bowel sounds, no tenderness, no distended, no masses Integumentary: no rash, warm and dry Neurologic: no focal deficit Musculoskeletal: other (no edema in BLE) - Lab 07/26/21 04:46 07/25/21 22:58 Most recent lab results Calcium 8.6 mg/dL (8.4-10.2) 07/25/21 22:58 Phosphorus 2.60 mg/dL (2.5-4.5) D 07/25/21 02:47 Magnesium 2.90 mg/dL (1.7-2.3) H 07/24/21 05:48 Medications & Allergies - Medications Allergies/Adverse Reactions: Allergies No Known Allergies Allergy (Verified 04/18/20 10:21) Home Medications: Home Medications Medication Instructions Recorded Confirmed Last Taken Type HumuLIN R 6 units SUB-Q AC #5 pen 05/01/20 07/25/21 Unknown Rx Levemir Flextouch 30 units SUB-Q DAILY #5 pen 05/01/20 07/25/21 Unknown Rx Tamsulosin [Flomax] 0.4 mg PO QDAY #30 capsule 05/01/20 07/25/21 Unknown Rx amLODIPine 5 mg PO QDAY 30 Days #30 tablet 05/01/20 07/25/21 Unknown Rx levoFLOXacin [Levaquin TAB] 750 mg PO Q24H #5 tablet 05/01/20 07/25/21 Unknown Rx Active Medications: Generic Name Dose Route Start Last Admin Trade Name Freq PRN Reason Stop Dose Admin Acetaminophen 650 mg 07/24/21 04:06 Acetaminophen 325 Mg Tab PO Q4H PRN Pain MILD(1-3)/Fever >100.5/CUELLO Albuterol 2.5 mg 07/24/21 04:06 Albuterol 2.5 Mg/3 Ml Nebu IH Q4HRT PRN Shortness Of Breath Amlodipine Besylate 5 mg 07/24/21 10:00 07/25/21 10:16 Amlodipine 5 Mg Tab PO Not Given QDAY JULIO C Dextrose 50 ml 07/24/21 09:49 Dextrose 50% In Water (25gm) 50 Ml Syringe IV Q30MIN PRN Hypoglycemia Protocol Famotidine 20 mg 07/24/21 10:00 07/25/21 10:20 Famotidine 20 Mg/2 Ml Inj IV 20 mg QAM JULIO C Administration Heparin Sodium (Porcine) 5,000 unit 07/24/21 10:00 07/25/21 22:04 Heparin 5,000 Unit/1 Ml Vial SUB-Q 5,000 unit Q12HR JULIO C Administration Hydromorphone HCl 0.5 mg 07/24/21 04:06 Hydromorphone 1 Mg/1 Ml Inj IV Q3H PRN Pain , Severe (7-10) Insulin Human Regular 100 100 mls @ 1 mls/hr 07/24/21 04:00 07/24/21 17:05 units/ Sodium Chloride IV 6 units/hr TITR JULIO C 6 mls/hr Administration Protocol 1 UNITS/HR Sodium Chloride 1,000 mls @ 150 mls/hr 07/25/21 11:00 07/25/21 23:05 Nacl 0.45% 1000 Ml IV 150 mls/hr DIRECT JULIO C Administration Insulin Glargine 10 units 07/24/21 18:30 07/25/21 23:05 Insulin Glargine 100 Units/Ml SUB-Q 10 units QHS JULIO C Administration Insulin Human Regular 0 units 07/24/21 10:00 07/26/21 06:37 Insulin Regular, Human 100 Units/1 Ml SUB-Q 4 units Q4H JULIO C Administration Protocol Insulin Human Regular 5 units 07/25/21 11:30 07/25/21 22:05 Insulin Regular, Human 100 Units/1 Ml SUB-Q 5 units ACHS JULIO C Administration Ondansetron HCl 4 mg 07/24/21 04:06 Ondansetron 4 Mg/2 Ml Inj IV Q8H PRN Nausea And Vomiting Oxycodone/Acetaminophen 1 tab 07/24/21 04:06 Oxycodone /Acetaminophen 5-325mg Tab PO Q6H PRN Pain, Moderate (4-6) Sodium Chloride 10 ml 07/24/21 10:00 07/25/21 23:09 Sodium Chloride 0.9% 10 Ml Flush Syringe IV 10 ml BID JULIO C Administration Sodium Chloride 10 ml 07/24/21 04:06 Sodium Chloride 0.9% 10 Ml Flush Syringe IV PRN PRN LINE FLUSH Tamsulosin HCl 0.4 mg 07/24/21 10:00 07/25/21 10:17 Tamsulosin 0.4 Mg Cap PO Not Given QDAY JULIO C
[2021-07-26 11:25] LABS: Calcium 9.3 mg/dL (8.4-10.2)
[2021-07-26] MEDS: amLODIPine 5 MG TAB PO SCH (12:28)
[2021-07-26] MEDS: TAMSULOSIN 0.4 MG CAP PO SCH (12:29)
[2021-07-26] MEDS: HEPARIN 5,000 UNIT/1 ML VIAL SUB-Q SCH (12:33)
[2021-07-26] MEDS: FAMOTIDINE 20 MG/2 ML INJ IV SCH (12:33)
--- NOTE | 2021-07-26 16:21 | Discharge Summary ---
Providers - Providers Date of Admission: 07/24/21 03:53 Date of discharge: 07/26/21 Attending physician: ANTIONETTE VACA MD 07/24/21 04:06 Consult to Dietitian/Nutrition [CONS] Routine Physician Instructions: Reason For Exam: DKA Reason for Consult: Nutrition Recommendations Reason for Consult: Diet education 07/24/21 04:25 Consult to Physician [CONS] Routine Comment: Consulting Provider: YFN LORD Physician Instructions: Reason For Exam: maryellen 07/24/21 09:49 Consult to Dietitian/Nutrition [CONS] Routine Physician Instructions: Reason For Exam: Reason for Consult: Diet education 07/25/21 16:28 Speech Therapy Evaluation and Treat [CONS] Routine Reason For Exam: trouble swallowing Primary care physician: [employer]INE [employer]ENDER Hospitalization Reason for admission: nausea vomiting Condition: Fair Hospital course: Chief complaint: Nausea vomiting diarrhea History of present illness: 50-year-old male with past medical history of diabetes, hypertension, CAD and CABG was brought to the emergency room because of nausea vomiting for the last 3 days. Patient reports associated diffuse abdominal pain. He denies any diarrhea. He denies any fever or chills. Patient reports some mild coughing. Denies any loss of smell or taste. Patient reports he is unvaccinated against COVID-19. EMS was called for transport to the ED. EMS reports Accu-Chek reads HIGH, patient also hypotensive in the field, systolic BP in the 90s. Patient is noncompliant with his insulin. Patient currently on Eliquis. Patient states he does not know why he takes Eliquis. In the emergency room patient is found to have blood glucose of 906, potassium of 7.7 BUN of 78 and creatinine 3.5, sodium 126, anion gap 33. We will going to admit the patient to the ICU we will put the patient on insulin drip. Will consult critical care and nephrology Med rec is done. Advance discharge planning is initiated Assessment and Plan 1. Diabetic Ketoacidosis DKA protocol ordered Insulin drip as per protocol. Transition to lantus once gap closed and BG < 250. IV fluid normal saline at the rate of 150 cc/h. IV access has been difficult. IV team called by ED staff multiple times ...awaiting placement. patient absolutely needs this for insulin gtt In the interim will use high dose SSI regimen. Follow GAP on serial BMP's Critical care following. 2. Diabetes Mellitus with Hyperglycemia Insulin drip as per protocol. We do the serial BMP. IV fluid normal saline at the rate of 150 cc/h. Will consult critical care evaluation. Recheck CBC BMP in the morning 3. Hyperkalemia Avoid nephrotoxic drug. Insulin drip as per protocol. Calcium gluconate 1 g IV x1 dose. Sodium bicarb 50 mEq IV x1 dose. We consulted nephrology for further evaluation and treatment. Case discussed with nephrology. Recheck BMP in the morning 4. Acute renal failure vs ESRD. Avoid nephrotoxic drug. Normal saline at the rate of 150 cc/h. Renally dose medication. Serial BMP. Consult nephrology for further evaluation and treatment 5.CAD Stable. We will continue the home medication 6. Hyperglycemia Insulin protocol as above. 7. Hypertension Amlodipine 5 mg p.o. daily. We continue the home medication. We will monitor the patient closely Code status: Full Code DVT: Heparin 5000 U subq bid Diet: NPO Hospital course to date 07/25: Continues to be confused. Likely metabolic. IV access has been challenging. Will continue sliding scale insulin. BMP q4 hr until closed gap. Patient has HHC service already per . was able to contact sister who helps care for patient. Once patient clinically improved will d/c home. 07/26: Patient mentation significantly improved. BMP demonstrates closed gap. Patient tolerating diet. Patient will be discharged home this afternoon. Sister will pick and shovel man patient. Disposition: HOME HEALTH CARE SERVICE Final Discharge Diagnosis (Prints w/discharge instructions): Diabetic Ketoacidosis Time spent for discharge: 35 - Discharge Diagnoses (1) Diabetic ketoacidosis Status: Acute (2) Diabetes mellitus with hyperglycemia Status: Acute (3) CAD (coronary artery disease) Status: Acute (4) Hyperkalemia Status: Acute (5) Hypertension Status: Acute (6) MARYELLEN (acute kidney injury) Status: Acute (7) Hyperglycemia Status: Acute Core Measure Documentation - Palliative Care Palliative Care/ Comfort Measures: Not Applicable - Core Measures Any of the following diagnoses?: none Exam - Physical Exam Narrative exam: General appearance: Present: no acute distress, thin male - EENT Eyes: Present: PERRL ENT: hearing intact, clear oral mucosa - Neck Neck: Present: supple, normal ROM - Respiratory Respiratory effort: normal Respiratory: bilateral: CTA - Cardiovascular Heart Sounds: Present: S1 & S2. 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, strength equal bilaterally - Psychiatric Psychiatric: appropriate mood/affect, intact judgment & insight - Neurologic Neurologic: CNII-XII intact, moves all extremities - Constitutional Vitals: Temp Pulse Resp BP Pulse Ox 98.5 F 98 H 18 139/78 99 07/26/21 11:11 07/26/21 11:11 07/26/21 11:11 07/26/21 11:11 07/26/21 11:11 Plan Follow up with: PRIMARY CARE, [Primary Care Provider] - 3-5 Days Prescriptions: Insulin Detemir [Levemir Flextouch] 30 unit SQ QHS 30 Days #1 box amLODIPine 5 mg PO QDAY 30 Days #30 tablet Tamsulosin [Flomax] 0.4 mg PO QDAY #30 capsule Insulin Regular, Human [Novolin R Flexpen] 6 unit SQ AC 30 Days #1 box
[2021-07-26 18:39] VITALS: BP 94/64
== END 2021-07-26 19:10 | disposition home or self-care (01) | DRG 637 ==
LOC: ED 02:10 → CC1 03:53 → 4A 07-25 04:44
PROVIDERS: ADMIT Hospitalist; ATTEND Internal Medicine
DX: E11.10 Type 2 diabetes mellitus with ketoacidosis without coma (principal); N17.0 Acute kidney failure with tubular necrosis; N18.6 End stage renal disease; I25.10 Atherosclerotic heart disease of native coronary artery without angina pectoris; I50.9 Heart failure, unspecified; I25.2 Old myocardial infarction; Z86.718 Personal history of other venous thrombosis and embolism; Z79.01 Long term (current) use of anticoagulants; Z86.711 Personal history of pulmonary embolism; Z79.4 Long term (current) use of insulin; F17.200 Nicotine dependence, unspecified, uncomplicated; Z95.1 Presence of aortocoronary bypass graft; E87.5 Hyperkalemia; D72.829 Elevated white blood cell count, unspecified; I13.2 Hypertensive heart and chronic kidney disease with heart failure and with stage 5 chronic kidney disease, or end stage renal disease
CPT/HCPCS: 36415; 71045; 74022; 76770; 80048; 80076; 81001; 82010; 82140; 82805; 82962; 83690; 83735; 84100; 85007; 85025; 93005; 94640; G0378; J0610; J1644; J1815; J2405; J7030